=== PATIENT | female | born 1975 | race Caucasian/White ===

== ENCOUNTER 2020-02-19 20:35 | Emergency (ER) | payer OTHER, SELFPAY ==
--- NOTE | ~2020-02-19 | XR_ITS ---
EXAMINATION: XR chest 2V 02/19/2020 21:14 INDICATION: Chest tightness PROCEDURE: PA and lateral views of the chest COMPARISON: No prior studies for comparison. FINDINGS: The lungs are clear. The cardiomediastinal silhouette is within normal limits. There are no pleural effusions. There is no pneumothorax suspected. IMPRESSION: 1: NO ACUTE CARDIOPULMONARY DISEASE. Reviewed, dictated and finalized at location A.
--- NOTE | 2020-02-19 20:37 | ECG_ITS ---
Measurements Intervals [place] Rate: 84 P: 21 AK: 130 QRS: -6 QRSD: 86 T: 12 QT: 411 QTc: 487 Interpretive Statements SINUS RHYTHM BORDERLINE R WAVE PROGRESSION, ANTERIOR LEADS BASELINE ARTIFACT- I, II, AVR, AVL, AVF, V1-V6 BORDERLINE ECG Electronically Signed On 02-20-2020 7:21:38 CDT by Boy Clayton D.O.
[2020-02-19 20:38] VITALS: BP 152/101; PULSE 87; RESP 24; TEMP 36.7; O2SAT 95
[2020-02-19 20:46] VITALS: O2SAT 99
[2020-02-19 20:50] VITALS: PULSE 87
[2020-02-19 20:52] LABS: Basophils Percent Auto 0.4 % (0.2-1.2); Eosinophils Absolute Auto 0.1 K/mm3 (0-0.3); Eosinophils Percent Auto 1.3 % (0-4.4); Hematocrit 39.7 % (37.0-47.0); Hemoglobin 14.1 g/dL (12.0-15.0); Immature Granulocyte Absolute 0.02 K/mm3 (0.00-0.031); Immature Granulocyte Percent A 0.3 % (0-0.5); Lymphocytes Percent Auto 25.6 % (18.3-44.2); Mean Corpuscular HGB Conc 35.5 g/dl (32-36); Mean Corpuscular Hemoglobin 30.2 pg (26-34); Mean Platelet Volume 10.7 fl (7.4-10.4); Monocytes Absolute Auto 0.8 K/mm3 (0.1-0.6); Monocytes Percent Auto 11.4 % (2.6-8.5); Neutrophils Absolute Auto 4.3 K/mm3 (1.3-6.7); Platelet Count Result 209 k/mm3 (150-375); Red Blood Count 4.67 M/mm3 (4.2-5.4); Red Cell Distribution Width 12.8 % (11.5-14.5)
[2020-02-19] MEDS: ASPIRIN 81 MG CHEWABLE TABLET 324 MG PO (21:00)
[2020-02-19] MEDS: ALPRAZolam 0.25 MG TABLET 0.5 MG PO (21:00)
--- NOTE | 2020-02-19 21:02 | ED.GENADULT ---
HPI - General Adult General Chief complaint: Chest Pain Stated complaint: chest tightness Time Seen by Provider: 02/19/20 20:38 History of Present Illness HPI narrative: Patient is a 44-year-old female who presents to the ER with chest pain. Began last night. Pressure in the center of her chest. It began after having a fight with her boss via text message. She then developed some similar chest discomfort after having intense meeting later in the day at work. It is still there but only slightly. No radiation. No sweats/shortness of breath. No other additional aggravating factors. No previous history of coronary disease. Related Data Home Medications Medication Instructions Recorded Confirmed levothyroxine 100 mcg tablet 100 mcg PO DAILY 08/22/19 08/22/19 metoprolol succinate 100 mg 100 mg PO DAILY 08/22/19 08/22/19 capsule sprinkle, ext. release 24 hr omeprazole 20 mg capsule,delayed 20 mg PO DAILY 08/22/19 08/22/19 release oxybutynin chloride 10 mg 10 mg PO DAILY 08/22/19 08/22/19 tablet,extended release 24 hr sertraline 100 mg tablet 100 mg PO DAILY 08/22/19 08/22/19 hydrochlorothiazide 25 mg PO DAILY 02/19/20 semaglutide [Ozempic] 0.25 mg SUBCUT WEEKLY 02/19/20 Allergies Allergy/AdvReac Type Severity Reaction Status Date / Time No Known Allergies Allergy Unverified 02/19/20 20:51 Review of Systems Review of Systems: All systems reviewed & are unremarkable except as noted in HPI and below Constitutional: Constitutional: Denies chills, Denies fever(s) and Denies weakness ENT: Denies nasal congestion and Denies sore throat Cardiovascular: Cardiovascular: Reports chest pain, Denies rapid heart rate and Denies radiating jaw, neck or arm pain Respiratory: Respiratory: Denies cough, Denies dyspnea and Denies wheezing Gastrointestinal: Gastrointestinal: Denies nausea and Denies vomiting Psychiatric: Psychiatric: Reports anxiety (stress) [facility] Past Medical History Medical History (Updated 02/20/20 @ 00:31 by Dillon Holbrook MD) Hypertension Pre-diabetes Radial tunnel syndrome of left upper extremity Surgical History Surgical History History of (~2002) History of endometrial ablation (~2013) History of tubal ligation (~2013) Social History Social History Smoking status: Never smoker Alcohol intake: current Gender identity (if verbalized by the patient): Female Exam Narrative: Exam Narrative: GENERAL: Well-appearing, well-nourished, and in no acute distress. HEAD: Normocephalic, atraumatic. CHEST: Clear to auscultation. No respiratory distress. No reproducible chest wall tenderness. HEART: Regular rate and rhythm. Normal peripheral pulses. ABDOMEN: Soft, nontender, nondistended. EXTREMITIES: Normal range of motion. No edema. SKIN: Warm, dry, no rash. NEURO: Alert and oriented x3. PSYCH: Normal mood and affect. Course Course Emergency Course: Chest pain-free since Xanax. Troponin is negative x2. Discharge home. Vital Signs Vital signs: Vital Signs Temperature 98.0 F 02/19/20 20:38 Pulse Rate 87 02/19/20 20:38 Respiratory Rate 24 H 02/19/20 20:38 Blood Pressure 152/101 H 02/19/20 20:38 Pulse Oximetry 95 02/19/20 20:38 Temperature 98.0 F 02/19/20 20:38 Pulse Rate 75 02/19/20 22:30 Respiratory Rate 22 H 02/19/20 22:30 Blood Pressure 107/73 02/19/20 22:30 Pulse Oximetry 95 02/19/20 22:30 Medical Decision Making Vital Signs Vital Signs: Vital Signs Temperature 98.0 F 02/19/20 20:38 Pulse Rate 87 02/19/20 20:38 Respiratory Rate 24 H 02/19/20 20:38 Blood Pressure 152/101 H 02/19/20 20:38 Pulse Oximetry 95 02/19/20 20:38 Temperature 98.0 F 02/19/20 20:38 Pulse Rate 75 02/19/20 22:30 Respiratory Rate 22 H 02/19/20 22:30 Blood Pressure 107/73 02/19/20 22:30 Pulse Oximetry 95
[2020-02-19 21:03] LABS: Anion Gap 9 mmol/L (8-16); Blood Urea Nitrogen 15 mg/dL (7-17); Calcium 9.1 mg/dL (8.4-10.2); Carbon Dioxide 25 mmol/L (22-30); Chloride 102 mmol/L (98-107); Estimated CRCL calculation 96 ml/min; Estimated Glomerular Filt Rate > 60; Glucose 97 mg/dL (65-105); Potassium 3.6 mmol/L (3.4-5.0); Sodium 136 mmol/L (137-145)
[2020-02-19 21:04] LABS: INR 1.1; Prothrombin Time 13.6 Seconds (11.1-14.7)
[2020-02-19 21:05] LABS: Partial Thromboplastin Time 59.8 SECONDS (22.3-36.8)
[2020-02-19 21:15] LABS: Troponin I < 0.012 ng/mL (0.000-0.034)
[2020-02-19 21:30] VITALS: BP 141/90; PULSE 81; RESP 19; O2SAT 97
[2020-02-19 22:30] VITALS: BP 107/73; PULSE 75; RESP 22; O2SAT 95
[2020-02-19 23:58] LABS: Troponin I < 0.012 ng/mL (0.000-0.034)
[2020-02-20 00:41] VITALS: BP 119/77; PULSE 67; RESP 18; O2SAT 97
== END 2020-02-20 00:40 | disposition home or self-care (01) ==
PROVIDERS: Emergency Provider Emergency Medicine; PCP Nurse Practitioner Adult Health
DX: F41.9 Anxiety disorder, unspecified (principal); R07.9 Chest pain, unspecified; I10 Essential (primary) hypertension
CPT/HCPCS: 36415; 71046; 80048; 84484; 85025; 85610; 85730; 93005; 99284; A9270

== ENCOUNTER → 2020-04-22 10:26 | Outpatient (CLI) | payer OTHER, SELFPAY ==
--- NOTE | ~2020-04-22 | MM_ITS ---
EXAMINATION: MM screening [facility] BI w kerri HISTORY: Screening mammogram TECHNIQUE: Craniocaudal and mediolateral oblique 3-D tomosynthesis images were obtained and synthetic 2-D images were generated. CAD analysis was submitted and interpreted. COMPARISON: 01/01/2019, 10/13/2017, 07/23/2016 BREAST PARENCHYMAL COMPOSITION: There are scattered areas of fibroglandular density. FINDINGS: There is no evidence of suspicious mass, calcification, or architectural distortion to sugg est malignancy in either breast. There has been no suspicious interval change. IMPRESSION: 1. No mammographic evidence of malignancy. 2. Recommend routine screening mammography in one year. BI-RADS Category 1: Negative Reviewed, dictated and finalized at location A.
== END ==
PROVIDERS: Visit Provider Nurse Practitioner Adult Health
DX: Z12.31 Encounter for screening mammogram for malignant neoplasm of breast (principal)
CPT/HCPCS: 77063; 77067

== ENCOUNTER → 2021-11-24 16:16 | Outpatient (CLI) | payer OTHER, SELFPAY ==
--- NOTE | ~2021-11-24 | MM_ITS ---
EXAMINATION: MM screening ju BI w kerri HISTORY: Screening mammogram TECHNIQUE: Craniocaudal and mediolateral oblique 3-D tomosynthesis images were obtained and synthetic 2-D images were generated. CAD analysis was submitted and interpreted. COMPARISON: 04/22/2020, 01/01/2019, 10/21/2017 bilateral screening mammogram examinations BREAST PARENCHYMAL COMPOSITION: There are scattered areas of fibroglandular density. FINDINGS: There is no evidence of suspicious mass, calcification, or architectural distortion to sugg est malignancy in either breast. There has been no suspicious interval change. IMPRESSION: 1. No mammographic evidence of malignancy. 2. Recommend routine screening mammography in one year. BI-RADS Category 1: Negative Reviewed, dictated and finalized at location A.
== END ==
PROVIDERS: PCP Nurse Practitioner Adult Health; Visit Provider Obstetrics & Gynecology
DX: Z12.31 Encounter for screening mammogram for malignant neoplasm of breast (principal)
CPT/HCPCS: 77063; 77067

== ENCOUNTER 2021-12-12 14:11 | Emergency (ER) | payer OTHER, SELFPAY ==
[2021-12-12 14:15] VITALS: BP 119/83; PULSE 74; RESP 16; TEMP 36.3; O2SAT 100
--- NOTE | 2021-12-12 14:16 | ED.SKABFB ---
HPI - Skin/Abscess/Foreign Bdy General Chief complaint: Skin/Abscess/Foreign Body Stated complaint: rash Time Seen by Provider: 12/12/21 14:16 Source: patient Mode of arrival: ambulatory Limitations: no limitations History of Present Illness HPI narrative: Ms. Cotto is a 46-year-old female patient presenting to the clinic today with complaints of a rash to her face, arms, and chest. She reports she was out doing yard work and was around poison [place]. States that her has got poison [place] rash as well. She is concerned because some of the rashes by her left eye. Related Data Home Medications Medication Instructions Recorded Confirmed levothyroxine 100 mcg tablet 100 mcg PO DAILY 08/22/19 09/29/21 metoprolol succinate 100 mg 100 mg PO DAILY 08/22/19 09/29/21 capsule sprinkle, ext. release 24 hr omeprazole 20 mg capsule,delayed 20 mg PO DAILY 08/22/19 09/29/21 release sertraline 100 mg tablet 100 mg PO DAILY 08/22/19 09/29/21 hydrochlorothiazide 25 mg tablet 25 mg PO DAILY 02/19/20 09/29/21 semaglutide 0.25 mg or 0.5 mg (2 0.25 mg subcut WEEKLY 02/19/20 09/29/21 mg/1.5 mL) subcutaneous pen injector (Ozempic) Allergies Allergy/AdvReac Type Severity Reaction Status Date / Time No Known Allergies Allergy Unverified 09/29/21 08:36 Review of Systems Review of Systems: Pertinent positives per HPI. Patient denies any fever, chills,headache, visual changes, dizziness, cough, runny nose, sore throat, shortness of breath, chest pain, palpitations, nausea, vomiting, diarrhea, constipation, abdominal pain, or any urinary issues. [facility] Past Medical History Medical History Hypertension Pre-diabetes Radial tunnel syndrome of left upper extremity Screening mammogram, encounter for Thyroid disease Surgical History Surgical History History of (11/24/02) History of dilation and curettage 01/03/13 hscope d&c/tubal ligation History of endometrial ablation 05/02/13 hscope d&c/endo ablation--secretory endometrium History of laparoscopy (06/23/11) Bilateral tubal ligation using Filshie clips, laparoscopic lysis of adhesions, laparoscopic resection of a left adnexal mass History of tubal ligation (06/23/11) 06/23/11 Bilateral tubal ligation using Filshie clips, laparoscopic lysis of adhesions, laparoscopic resection of a left adnexal mass 01/03/13 hscope d&c w/tubal ligation Family History Family History Father Hypertension Diabetes mellitus Mother Hypertension Diabetes mellitus Grandparent Family history of lung cancer Family history of coronary artery disease Diabetes mellitus maternal grandmother Breast cancer, Onset Age: 79 maternal grandmother Social History Social History Smoking status: Never smoker Alcohol intake: current Alcohol use details: ocassional 1 x month Substance use: never Substance use type: does not use Additional living arrangements comments: 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 There is no relevant family history pertinent to the patient complaint. Exam Narrative: General: Well-developed, obese, in no apparent distress Head: Normocephalic, atraumatic. Cardio: Regular rate and rhythm, s1 and s2 normal, no murmur appreciated. Resp: Clear to auscultation bilaterally, no rhonchi, rales, wheezing or rubs. Integumentary: [place], warm, and dry, intact without lesion, red, raised, blistery, itchy rash to the an
== END 2021-12-12 14:53 | disposition home or self-care (01) ==
PROVIDERS: Emergency Provider Nurse Practitioner Family; PCP Nurse Practitioner Adult Health
DX: L23.7 Allergic contact dermatitis due to plants, except food (principal); I10 Essential (primary) hypertension; R73.03 Prediabetes; E07.9 Disorder of thyroid, unspecified
CPT/HCPCS: 96372; 99213; G0463; J1100

== ENCOUNTER 2022-12-30 17:04 | Outpatient (CLI) | payer OTHER, SELFPAY ==
[2022-12-30 17:46] LABS: Anion Gap 7 mmol/L (8-16); Blood Urea Nitrogen 11 mg/dL (7-17); Calcium 8.8 mg/dL (8.4-10.2); Carbon Dioxide 27 mmol/L (22-30); Chloride 102 mmol/L (98-107); Estimated Glomerular Filt Rate > 60; Glucose 126 mg/dL (65-110); Potassium 3.7 mmol/L (3.4-5.0); Sodium 136 mmol/L (137-145)
== END 2022-12-30 17:05 | disposition home or self-care (01) ==
LOC: ANHLAB 17:05
PROVIDERS: PCP Family Medicine; Visit Provider Anesthesiology
DX: E11.9 Type 2 diabetes mellitus without complications (principal); Z01.818 Encounter for other preprocedural examination
CPT/HCPCS: 36415; 80048

== ENCOUNTER 2023-01-06 02:47 | Day surgery (SDC) | payer OTHER, SELFPAY ==
[2022-12-28 10:11] VITALS: BMI 38.2
--- NOTE | 2022-12-28 10:17 | PC.NURSE ---
Report to the Outpatient Waiting Room, entrance under the green pavilion located off [facility], at time _0700__ on date _01/06/23_. Planned Procedure Time: _0900. Time changes happen often and if your time is changed the preop area will call you the afternoon before. - You and your visitor will be asked to self-screen and do not enter if you have any COVID symptoms. - A mask is optional within the hospital at this time. Patients may have clear liquids (water, carbonated beverages, clear teas, apple juice) until 3 hours prior to surgery with a maximum of 20 ounces. - No food from midnight until time of surgery - Infants may have breast milk until 4 hours before surgery, infant formula 6 hours prior to surgery. - Children will be allowed to drink immediately following surgery. If applicable, please bring a bottle or sippy cup to assist with drinking. Juice, water, soda, and popsicles are readily available. For infants on formula, please bring formula the day of surgery. Pacifiers are allowed. Take the following medications with a SIP of water the morning of surgery: _LEVOTHYROXINE, METOPROLOL, SERTRALINE_ DO NOT STOP ANY OF YOUR OTHER PRESCRIPTION MEDICATIONS PRIOR TO SURGERY ?EXCEPT THE FOLLOWING Medications to discontinue per physician NONE Date to take last dose Please no make-up, nail wolof, hairspray, perfume, deodorant, or body powder the day of surgery. No jewelry (including any body piercings) or valuables the day of surgery, leave them at home. Please take a shower or bath the night before, or the morning of, surgery with an antibacterial soap. Wear comfortable, loose fitting clothing. Children are encouraged to wear pajamas. - Jewelry must be removed prior to entering the operating room. Rings and piercings that are not removed may be cut off. - The hospital will not accept responsibility for valuables. - Please leave all valuables, including medications, at home the day of surgery. If you are going home after surgery, a licensed wheelchair van driver must drive you home. - NO public transportation without another adult if you receive anesthesia. - We recommend that an adult stay with you for 24 hours following discharge. - We also recommend that you do not drive, make important decision, drink alcoholic beverages, or take any drugs that were not prescribed by your health care provider for at least 24 hours after your discharge time. For Pediatric surgeries, we recommend two adults accompany the child home. Follow any additional instructions given to you from your surgeon. If you or anyone in your household have experienced Covid symptoms in the past week, please notify your surgeon or the nurse liaison at the phone number below for possible testing. Telephone instructions given to _PATIENT and asked if any additional questions and then verbalized understanding. Patient advised to call surgeon office or pre surgery nurse liaison [phone] if any additional questions.
--- NOTE | 2023-01-05 13:13 | PM.IMHP ---
H&P: HPI History of Present Illness Date/Time: 01/05/23 13:13 Chief Complaint: stress incontinence Narrative: she desires operative intervention for stress urinary incontinence. It is confirmed on urodynamics. Review of Systems Review of Systems: All systems reviewed & are unremarkable except as noted in HPI and below PMFSH Past Medical History Medical History Elevated glucose Essential (primary) hypertension Fatty (change of) liver, not elsewhere classified GERD (gastroesophageal reflux disease) Hypertension Hypothyroidism, unspecified Metabolic syndrome Radial tunnel syndrome of left upper extremity Screening mammogram, encounter for Thyroid disease Type 2 diabetes mellitus without complications Surgical History Surgical History History of (11/24/02) History of dilation and curettage 01/03/13 hscope d&c/tubal ligation History of endometrial ablation 05/02/13 hscope d&c/endo ablation--secretory endometrium History of laparoscopy (06/23/11) Bilateral tubal ligation using Filshie clips, laparoscopic lysis of adhesions, laparoscopic resection of a left adnexal mass History of tubal ligation (06/23/11) 06/23/11 Bilateral tubal ligation using Filshie clips, laparoscopic lysis of adhesions, laparoscopic resection of a left adnexal mass 01/03/13 hscope d&c w/tubal ligation Family History Family History Father Hypertension Diabetes mellitus Mother Hypertension Diabetes mellitus Grandparent Family history of lung cancer Family history of coronary artery disease Diabetes mellitus maternal grandmother Breast cancer, Onset Age: 79 maternal grandmother Hypertension Sibling Hypertension Other Depression Social History Social History Smoking status: Never smoker Second hand tobacco smoke exposure: No Alcohol intake: current Alcohol use details: 2 PER MONTH Substance use: former Substance use type: marijuana Other substance usage details: IN TEEN YEARS Lack of Transportation: No Lack of Food: Never True Current Housing: I Have Housing Concerned About Future Housing: No Difficulty Paying Gas/Electric Bills: No Difficulty Paying for Meds: No Currently Unemployed: No Education: High School Diploma/GED Difficulty w/ Childcare or Family Care: No Living arrangements: with family Additional living arrangements comments: Occupation/Education: occupation 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 Gender identity (if verbalized by the patient): Female Sexual Orientation (if Verbalized by the Patient): Straight or Heterosexual Spiritual care concerns: No Agree to blood products: Yes Meds Home Medications and Allergies Home Medications Medication Instructions Recorded Confirmed Type baclofen 5 mg tablet 5 mg PO BID #60 tabs 09/12/22 12/28/22 Rx sertraline 100 mg tablet 100 mg PO DAILY #90 tabs 09/12/22 12/28/22 Rx levothyroxine 100 mcg tablet 100 mcg PO DAILY #90 tabs 09/20/22 12/28/22 Rx metoprolol succinate 100 mg 100 mg PO DAILY #90 tabs 09/21/22 12/28/22 Rx tablet,extended release 24 hr hydrochlorothiazide 25 mg tablet 25 mg PO DAILY #90 tabs 11/08/22 12/28/22 Rx omeprazole 40 mg capsule,delayed 40 mg PO DAILY #90 caps 12/01/22 12/28/22 Rx release semaglutide 1 mg/dose (4 mg/3 mL) 1 mg (0.75 mL) subcut WEEKLY 4 12/20/22 12/28/22 Rx subcutaneous pen injector (Ozempic) weeks #3 mL Allergies Allergy/AdvReac Type Severity Reaction Status Date / Time No Known Allergies Allergy Verified 12/28/22 10:09 Exam Narrative: No acute distress normal breathing alert oriented x3 urethral hypermobility Assessment and Plan Assessment and plan (1) PATTI (stress urin
--- NOTE | 2023-01-06 07:11 | WPDHPUPDATE1 ---
History and Physical Update Update Date/Time: 01/06/23 07:11 History and Physical has been reviewed, including an updated exam of the patient. There are NO changes in the patient's condition. Risks, benefits, and alternatives have been discussed and questions answered. Patient agrees to proceed with procedure.
--- NOTE | 2023-01-06 07:26 | WPDANESEPPF ---
Anes - Initial Pre Proc Eval Procedure: Operation Date: 01/06/23 09:00 Proposed Procedures p Urethral Sling - Shivam Potter MD Date/Time: 01/06/23 07:26 Surgeon: Shivam Potter MD Pre Op Diagnosis: stress incont Patient Data Age: 47 Gender: F Height: 1.57 m Weight: 95 kg Allergies Allergy/AdvReac Type Severity Reaction Status Date / Time No Known Allergies Allergy Verified 01/06/23 07:02 Home Medications Medication Instructions Recorded Confirmed Type baclofen 5 mg tablet 5 mg PO BID #60 tabs 09/12/22 12/28/22 Rx sertraline 100 mg tablet 100 mg PO DAILY #90 tabs 09/12/22 12/28/22 Rx levothyroxine 100 mcg tablet 100 mcg PO DAILY #90 tabs 09/20/22 12/28/22 Rx metoprolol succinate 100 mg 100 mg PO DAILY #90 tabs 09/21/22 12/28/22 Rx tablet,extended release 24 hr hydrochlorothiazide 25 mg tablet 25 mg PO DAILY #90 tabs 11/08/22 12/28/22 Rx omeprazole 40 mg capsule,delayed 40 mg PO DAILY #90 caps 12/01/22 12/28/22 Rx release semaglutide 1 mg/dose (4 mg/3 mL) 1 mg (0.75 mL) subcut WEEKLY 4 12/20/22 12/28/22 Rx subcutaneous pen injector (Ozempic) weeks #3 mL Patient hx anesthesia problems: none Family hx anesthesia problems: none Results Review: All pre-operative results and documents have been reviewed as part of the pre-operative evaluation. [facility] Past Medical History Medical History Elevated glucose Essential (primary) hypertension Fatty (change of) liver, not elsewhere classified GERD (gastroesophageal reflux disease) Hypertension Hypothyroidism, unspecified Metabolic syndrome Radial tunnel syndrome of left upper extremity Screening mammogram, encounter for Thyroid disease Type 2 diabetes mellitus without complications Surgical History Surgical History History of (11/24/02) History of dilation and curettage 01/03/13 hscope d&c/tubal ligation History of endometrial ablation 05/02/13 hscope d&c/endo ablation--secretory endometrium History of laparoscopy (06/23/11) Bilateral tubal ligation using Filshie clips, laparoscopic lysis of adhesions, laparoscopic resection of a left adnexal mass History of tubal ligation (06/23/11) 06/23/11 Bilateral tubal ligation using Filshie clips, laparoscopic lysis of adhesions, laparoscopic resection of a left adnexal mass 01/03/13 hscope d&c w/tubal ligation Family History Family History Father Hypertension Diabetes mellitus Mother Hypertension Diabetes mellitus Grandparent Family history of lung cancer Family history of coronary artery disease Diabetes mellitus maternal grandmother Breast cancer, Onset Age: 79 maternal grandmother Hypertension Sibling Hypertension Other Depression Social History Social History Smoking status: Never smoker Second hand tobacco smoke exposure: No Alcohol intake: current Alcohol use details: 2 PER MONTH Substance use: former Substance use type: marijuana Other substance usage details: IN TEEN YEARS Lack of Transportation: No Lack of Food: Never True Current Housing: I Have Housing Concerned About Future Housing: No Difficulty Paying Gas/Electric Bills: No Difficulty Paying for Meds: No Currently Unemployed: No Education: High School Diploma/GED Difficulty w/ Childcare or Family Care: No Living arrangements: with family Additional living arrangements comments: Occupation/Education: occupation 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
[2023-01-06 07:47] VITALS: BP 125/82; PULSE 73; RESP 16; TEMP 36.6; O2SAT 97
[2023-01-06] MEDS: LACTATED RINGERS 1,000 ML 30 ML IV CONT (07:54)
[2023-01-06 08:03] LABS: Glucose Point of Care 135 mg/dl (65-105)
[2023-01-06] MEDS: ceFAZolin 2 GM/D5W 50 ML 2 GM/50 ML BAG IVPB (09:20)
[2023-01-06] MEDS: BUPIVACAINE/EPINEPHRINE 0.5% 10 ML VIAL 20 ML INFILTRATE (09:36)
--- NOTE | 2023-01-06 09:50 | W.PM.PROC2 ---
Procedure Note - Detailed Date of Procedure 01/06/23 Pre-op Diagnosis stress incont Post-op Diagnosis Same Procedure Performed mid urethral sling cystoscopy Surgeon Shivam Potter MD Anesthesia MAC and Local Indications This is a female with confirmed stress urinary incontinence. She desires surgical correction. She understands the risks of bleeding, infection, injury to the urinary tract, vaginal mesh extrusion, urinary tract mesh erosion, obstructive voiding requiring a secondary procedure, hip and leg pain, dyspareunia, inability to improve overactive bladder symptoms. She agrees to proceed. Description of Procedure She was correctly identified. Informed consent obtained. She was brought the operating room. She was given appropriate anesthesia. She was given appropriate perioperative antibiotics. A time-out performed. I marked out the site of the inner thigh incisions. I anesthetized the skin and made those incisions. I anesthetized the anterior vaginal wall over the mid urethra. I made a 1 cm incision. I dissected out laterally taking great care not to injure the refilled vaginal wall. The procedure was made somewhat more difficult by her body habitus and her narrow caliber vagina. I passed the helical trocars. First on the left. Then on the right. I did this from the thigh incision towards the vaginal incision. The sling was connected to the trocars and brought out through the thigh incision. I tensioned the sling appropriately. I cut and the plastic sheaths. I then closed the incision with 2 0 Vicryl. On cystoscopy there is no tumors or surgical artifact. There was no surgical artifact in the urethra. I cut the excess sling material. Close incisions with glue. She was awakened and transferred to the PACU in stable condition. Implants Urethral sling Estimated Blood Loss 40 Drains No Packing No Pathology None sent Complications No immediate complications Condition Stable Disposition PACU
[2023-01-06 09:51] VITALS: BP 119/81; PULSE 77; RESP 18; O2SAT 97
[2023-01-06 10:11] LABS: Glucose Point of Care 119 mg/dl (65-105)
[2023-01-06 10:20] VITALS: BP 121/75; PULSE 65; RESP 18
== END 2023-01-06 10:40 | disposition home or self-care (01) ==
PROVIDERS: PCP Family Medicine; Visit Provider Urology
PROC: (CPT 57288; principal; 2023-01-06 09:00)
DX: N39.3 Stress incontinence (female) (male) (principal); I10 Essential (primary) hypertension; K21.9 Gastro-esophageal reflux disease without esophagitis; E03.9 Hypothyroidism, unspecified; E11.9 Type 2 diabetes mellitus without complications
CPT/HCPCS: 57288; 36415; 80048; 82948; C1771; J0690; J2250; J2704; J3010; J7030; J7120

== ENCOUNTER → 2023-03-03 13:43 | Outpatient (CLI) | payer BC, SELFPAY ==
--- NOTE | ~2023-03-03 | MM_ITS ---
EXAMINATION: MM screening ju BI w kerri HISTORY: Screening mammogram TECHNIQUE: Craniocaudal and mediolateral oblique 3-D tomosynthesis images were obtained and synthetic 2-D images were generated. CAD analysis was submitted and interpreted. COMPARISON: 11/24/2021, 04/20/2020 bilateral screening mammogram examinations BREAST PARENCHYMAL COMPOSITION: There are scattered areas of fibroglandular density. FINDINGS: There is no evidence of suspicious mass, calcification, or architectural distortion to sugg est malignancy in either breast. There has been no suspicious interval change. IMPRESSION: 1. No mammographic evidence of malignancy. 2. Recommend routine screening mammography in one year. BI-RADS Category 1: Negative..... Reviewed, dictated and finalized at location A.
== END ==
PROVIDERS: PCP Family Medicine; Visit Provider Obstetrics & Gynecology
DX: Z12.31 Encounter for screening mammogram for malignant neoplasm of breast (principal)
CPT/HCPCS: 77063; 77067

== ENCOUNTER 2023-07-24 01:51 | Day surgery (SDC) | payer BC, SELFPAY ==
[2023-06-27 08:27] VITALS: BMI 39.4
--- NOTE | 2023-07-21 09:52 | SUR.PREOP ---
Patient called regarding upcoming procedure. Message left regarding pt arrival date and time.
--- NOTE | 2023-07-22 15:14 | PM.HPGS ---
History of Present Illness History of Present Illness Consent: Risks, benefits, and alternatives have been discussed and questions answered. Patient agrees to proceed with procedure. Chief complaint: neoplasm screening Narrative: Xiomara Cotto is a 48 year old female who is referred for colon cancer screening.Close and a paternal grandfather all had colon cancer. Review of Systems Review of Systems: All systems reviewed & are unremarkable except as noted in HPI and below PMFSH Past Medical History Medical History Elevated glucose Essential (primary) hypertension Fatty (change of) liver, not elsewhere classified GERD (gastroesophageal reflux disease) Hypertension Hypothyroidism, unspecified Metabolic syndrome Radial tunnel syndrome of left upper extremity Screening mammogram, encounter for Thyroid disease Type 2 diabetes mellitus without complications Surgical History Surgical History History of (11/24/02) History of dilation and curettage 01/03/13 hscope d&c/tubal ligation History of endometrial ablation 05/02/13 hscope d&c/endo ablation--secretory endometrium History of laparoscopy (06/23/11) Bilateral tubal ligation using Filshie clips, laparoscopic lysis of adhesions, laparoscopic resection of a left adnexal mass History of tubal ligation (06/23/11) 06/23/11 Bilateral tubal ligation using Filshie clips, laparoscopic lysis of adhesions, laparoscopic resection of a left adnexal mass 01/03/13 hscope d&c w/tubal ligation Family History Family History Father Hypertension Diabetes mellitus Mother Hypertension Diabetes mellitus Grandparent Family history of lung cancer Family history of coronary artery disease Diabetes mellitus maternal grandmother Breast cancer, Onset Age: 79 maternal grandmother Hypertension Sibling Hypertension Other Depression Social History Social History Smoking status: Never smoker Second hand tobacco smoke exposure: No Alcohol intake: current Alcohol use details: 1 drink monthly Substance use: former Substance use type: does not use Other substance usage details: IN TEEN YEARS Lack of Transportation: No Lack of Food: Never True Current Housing: I Have Housing Concerned About Future Housing: No Difficulty Paying Gas/Electric Bills: No Difficulty Paying for Meds: No Currently Unemployed: No Education: High School Diploma/GED Difficulty w/ Childcare or Family Care: No Living arrangements: with family Additional living arrangements comments: Occupation/Education: occupation 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 Gender identity (if verbalized by the patient): Female Sexual Orientation (if Verbalized by the Patient): Straight or Heterosexual Spiritual care concerns: No Agree to blood products: Yes Meds Home Medications and Allergies Home Medications Medication Instructions Recorded Confirmed Type levothyroxine 100 mcg tablet 100 mcg PO DAILY #90 tabs 09/20/22 07/24/23 Rx hydrochlorothiazide 25 mg tablet 25 mg PO DAILY #90 tabs 11/08/22 06/27/23 Rx venlafaxine 75 mg capsule,extended 75 mg PO QPM #30 caps 04/26/23 06/27/23 Rx release 24 hr baclofen 5 mg tablet 5 mg PO BID #60 tabs 04/28/23 06/27/23 Rx metoprolol succinate 100 mg 100 mg PO DAILY #90 tabs 04/28/23 07/24/23 Rx tablet,extended release 24 hr Ozempic 1 mg/dose (4 mg/3 mL) 1 mg (0.75 mL) subcut WEEKLY #3 mL 05/23/23 07/24/23 Rx subcutaneous pen injector (semaglutide) omeprazole 40 mg capsule,delayed 40 mg PO DAILY #90 caps 07/09/23 07/24/23 Rx release Allergies Allergy/AdvReac Type Severity Reaction Status Date / Time No Known Allergies Allergy Verified 07/24/23 08:49
[2023-07-24 08:51] VITALS: BP 151/78; PULSE 78; RESP 18; TEMP 36.3; O2SAT 100
[2023-07-24] MEDS: LACTATED RINGERS 1,000 ML 150 ML IV CONT (08:59)
[2023-07-24 09:04] LABS: Glucose Point of Care 132 mg/dl (65-105)
--- NOTE | 2023-07-24 09:13 | WPDANESEPPF ---
Anes - Initial Pre Proc Eval Procedure: Operation Date: 07/24/23 10:00 Proposed Procedures p Screening Colonoscopy - Severiano Alba MD Date/Time: 07/24/23 09:13 Surgeon: Severiano Alba MD Pre Op Diagnosis: neoplasm screening Patient Data Age: 48 Gender: F Height: 1.57 m Weight: 96.2 kg Last Vital Signs Temp 97.3 F L 07/24/23 08:51 Pulse 78 07/24/23 08:51 Resp 18 07/24/23 08:51 BP 151/78 H 07/24/23 08:51 Pulse Ox 100 07/24/23 08:51 O2 Del Method Room Air 07/24/23 08:51 Allergies Allergy/AdvReac Type Severity Reaction Status Date / Time No Known Allergies Allergy Verified 07/24/23 08:49 Home Medications Medication Instructions Recorded Confirmed Type levothyroxine 100 mcg tablet 100 mcg PO DAILY #90 tabs 09/20/22 07/24/23 Rx hydrochlorothiazide 25 mg tablet 25 mg PO DAILY #90 tabs 11/08/22 06/27/23 Rx venlafaxine 75 mg capsule,extended 75 mg PO QPM #30 caps 04/26/23 06/27/23 Rx release 24 hr baclofen 5 mg tablet 5 mg PO BID #60 tabs 04/28/23 06/27/23 Rx metoprolol succinate 100 mg 100 mg PO DAILY #90 tabs 04/28/23 07/24/23 Rx tablet,extended release 24 hr Ozempic 1 mg/dose (4 mg/3 mL) 1 mg (0.75 mL) subcut WEEKLY #3 mL 05/23/23 07/24/23 Rx subcutaneous pen injector (semaglutide) omeprazole 40 mg capsule,delayed 40 mg PO DAILY #90 caps 07/09/23 07/24/23 Rx release Laboratory Tests 07/24/23 08:58 POC Capillary Glucose 132 H mg/dl (65-105) Patient hx anesthesia problems: none Family hx anesthesia problems: none Results Review: All pre-operative results and documents have been reviewed as part of the pre-operative evaluation. [facility] Past Medical History Medical History Elevated glucose Essential (primary) hypertension Fatty (change of) liver, not elsewhere classified GERD (gastroesophageal reflux disease) Hypertension Hypothyroidism, unspecified Metabolic syndrome Radial tunnel syndrome of left upper extremity Screening mammogram, encounter for Thyroid disease Type 2 diabetes mellitus without complications Surgical History Surgical History History of (11/24/02) History of dilation and curettage 01/03/13 hscope d&c/tubal ligation History of endometrial ablation 05/02/13 hscope d&c/endo ablation--secretory endometrium History of laparoscopy (06/23/11) Bilateral tubal ligation using Filshie clips, laparoscopic lysis of adhesions, laparoscopic resection of a left adnexal mass History of tubal ligation (06/23/11) 06/23/11 Bilateral tubal ligation using Filshie clips, laparoscopic lysis of adhesions, laparoscopic resection of a left adnexal mass 01/03/13 hscope d&c w/tubal ligation Family History Family History Father Hypertension Diabetes mellitus Mother Hypertension Diabetes mellitus Grandparent Family history of lung cancer Family history of coronary artery disease Diabetes mellitus maternal grandmother Breast cancer, Onset Age: 79 maternal grandmother Hypertension Sibling Hypertension Other Depression Social History Social History Smoking status: Never smoker Second hand tobacco smoke exposure: No Alcohol intake: current Alcohol use details: 1 drink monthly Substance use: former Substance use type: does not use Other substance usage details: IN TEEN YEARS Lack of Transportation: No Lack of Food: Never True Current Housing: I Have Housing Concerned About Future Housing: No Difficulty Paying Gas/Electric Bills: No Difficulty Paying for Meds: No Currently Unemployed: No Education: High School Diploma/GED Difficulty w/ Childcare or Family Care: No Living arrangements: with family Additional living arrangements comments: divor
[2023-07-24 10:04] VITALS: BP 114/73; PULSE 80; RESP 27; O2SAT 100
[2023-07-24 10:14] VITALS: BP 129/84; PULSE 76; RESP 26; O2SAT 100
[2023-07-24 10:24] VITALS: BP 128/87; PULSE 73; RESP 20; O2SAT 100
== END 2023-07-24 10:31 | disposition home or self-care (01) ==
PROVIDERS: PCP Family Medicine; Visit Provider Internal Medicine Gastroenterology
PROC: 0DJD8ZZ Inspection of Lower Intestinal Tract, Via Natural or Artificial Opening Endoscopic (ICD-10-PCS; CPT 45378; principal; 2023-07-24 10:00)
DX: Z12.11 Encounter for screening for malignant neoplasm of colon (principal); K64.8 Other hemorrhoids; I10 Essential (primary) hypertension; K21.9 Gastro-esophageal reflux disease without esophagitis; E03.9 Hypothyroidism, unspecified; E88.810 Metabolic syndrome; E11.9 Type 2 diabetes mellitus without complications; E66.9 Obesity, unspecified; Z68.38 Body mass index [BMI] 38.0-38.9, adult; Z79.85 Long-term (current) use of injectable non-insulin antidiabetic drugs; Z98.890 Other specified postprocedural states; Z80.1 Family history of malignant neoplasm of trachea, bronchus and lung; Z82.49 Family history of ischemic heart disease and other diseases of the circulatory system; Z80.3 Family history of malignant neoplasm of breast
CPT/HCPCS: 45378; 82948; J7120

== ENCOUNTER 2023-09-29 10:58 | Emergency (ER) | payer BC, SELFPAY ==
--- NOTE | 2023-09-29 11:04 | ED.GENADULT ---
HPI - General Adult General Chief complaint: Skin/Abscess/Foreign Body Stated complaint: Hives Time Seen by Provider: 09/29/23 11:04 Source: patient, RN notes reviewed and old records reviewed Mode of arrival: ambulatory Limitations: no limitations History of Present Illness HPI narrative: 48-year-old female to [facility] with complaint of bilateral eye irritation, redness for 3 days. Patient endorses child in home recently diagnosed with conjunctivitis. Pt also complaining of rash throughout face and bilateral wrists for 4 days. Patient states she was doing yard work last weekend and was likely exposed to poison awilda. Patient endorses history of similar reaction poison awilda. Patient has attempted to treat at home with p.o. Benadryl and Benadryl cream without relief. Related Data Allergies Allergy/AdvReac Type Severity Reaction Status Date / Time No Known Allergies Allergy Verified 09/29/23 11:10 Review of Systems Review of Systems: All systems reviewed & are unremarkable except as noted in HPI and below Constitutional: Constitutional: Reports as per HPI and Denies fatigue Eyes: Eyes: Reports as per HPI, Reports change in vision ( Right eye with onset of rash; resolved) and Reports irritation ( Bilateral) ENT: Reports as per HPI and Reports sore throat Cardiovascular: Cardiovascular: Reports no additional cardiovascular complaints, Denies chest pain and Denies dyspnea Respiratory: Respiratory: Reports no additional respiratory complaints, Denies cough, Denies pain on inspiration and Denies dyspnea Musculoskeletal: Musculoskeletal: Reports no additional musculoskeletal complaints Integumentary/Breasts: Skin/Breast: Reports rash (face- diffuse) Neurologic: Reports system reviewed and no additional complaints, except as documented Psychiatric: Psychiatric: Reports no additional psychiatric complaints PMFSH Past Medical History Medical History Elevated glucose Essential (primary) hypertension Fatty (change of) liver, not elsewhere classified GERD (gastroesophageal reflux disease) Hypertension Hypothyroidism, unspecified Metabolic syndrome Radial tunnel syndrome of left upper extremity Screening mammogram, encounter for Thyroid disease Type 2 diabetes mellitus without complications Surgical History Surgical History History of (11/24/02) History of dilation and curettage 01/03/13 hscope d&c/tubal ligation History of endometrial ablation 05/02/13 hscope d&c/endo ablation--secretory endometrium History of laparoscopy (06/23/11) Bilateral tubal ligation using Filshie clips, laparoscopic lysis of adhesions, laparoscopic resection of a left adnexal mass History of tubal ligation (06/23/11) 06/23/11 Bilateral tubal ligation using Filshie clips, laparoscopic lysis of adhesions, laparoscopic resection of a left adnexal mass 01/03/13 hscope d&c w/tubal ligation Family History Family History Father Hypertension Diabetes mellitus Mother Hypertension Diabetes mellitus Grandparent Family history of lung cancer Family history of coronary artery disease Diabetes mellitus maternal grandmother Breast cancer, Onset Age: 79 maternal grandmother Hypertension Sibling Hypertension Other Depression Social History Social History Smoking status: Never smoker Second hand tobacco smoke exposure: No Alcohol intake: current Alcohol use details: 1 drink monthly Substance use: former Substance use type: does not use Other substance usage details: IN TEEN YEARS Lack of Transportation: No Lack of Food: Never True Current Housing: I Have Housing Concerned About Future Housing: No Difficulty Paying Gas/Electric Bills: No Difficulty Paying for Meds: No Curr
[2023-09-29 11:13] VITALS: BP 119/84; PULSE 73; RESP 16; TEMP 36.5; O2SAT 100
[2023-09-29] MEDS: predniSONE 20 MG TABLET 40 MG PO (11:36)
== END 2023-09-29 11:46 | disposition home or self-care (01) ==
PROVIDERS: Emergency Provider Nurse Practitioner Family; PCP Family Medicine
DX: L25.9 Unspecified contact dermatitis, unspecified cause (principal); H10.33 Unspecified acute conjunctivitis, bilateral; I10 Essential (primary) hypertension; K76.0 Fatty (change of) liver, not elsewhere classified; K21.9 Gastro-esophageal reflux disease without esophagitis; E03.9 Hypothyroidism, unspecified; E11.9 Type 2 diabetes mellitus without complications; E88.810 Metabolic syndrome
CPT/HCPCS: 87081; 87880; 99213; G0463; J7512

== ENCOUNTER 2023-11-28 14:35 | Outpatient (CLI) | payer BC, SELFPAY ==
--- NOTE | ~2023-11-28 | US_ITS ---
US soft tissue UE LT 11/28/2023 15:06 Indication: Localized swelling of the left forearm Procedure: High-resolution Limited ultrasound of the left forearm soft tissues posteriorly Comparison: No prior studies for comparison. Findings: Normal heterogeneous soft tissues without focal solid or cystic mass. Impression: 1: Normal soft tissue ultrasound of the left forearm. No discrete mass. Reviewed, dictated and finalized at location B. Impression: 1: Normal soft tissue ultrasound of the left forearm. No discrete mass.
== END 2023-11-28 14:36 | disposition home or self-care (01) ==
PROVIDERS: PCP Nurse Practitioner Adult Health; Visit Provider Nurse Practitioner Adult Health
DX: R22.32 Localized swelling, mass and lump, left upper limb (principal)
CPT/HCPCS: 76882

== ENCOUNTER 2023-12-06 13:32 | Outpatient (CLI) | payer BC, SELFPAY ==
--- NOTE | 2023-12-06 14:15 | NEURO_ITS ---
Impression: # Complains of left upper extremity discomfort dorsally. # Left ulnar neuropathy across the elbow. # No Carpal Tunnel Syndrome. # Normal needle/EMG exam. # Question Radial Tunnel Syndrome. Nerve Conduction Studies Anti Sensory Summary Table Stim Site NR Peak (ms) P-T Amp (?V) Site1 Site2 Delta-P (ms) Dist (cm) Derrick (m/s) Left Median Anti Sensory (2-3nd Digit) Wrist 2.7 79.0 Wrist 2-3nd Digit 2.7 14.0 52 Wrist 2.8 55.7 Wrist 2-3nd Digit 2.7 14.0 52 Left Radial Anti Sensory (Base 1st Digit) Wrist 1.7 24.3 Wrist Base 1st Digit 1.7 0.0 Left Ulnar Anti Sensory (5th Digit) Wrist 2.1 91.9 Wrist 5th Digit 2.1 14.0 67 Motor Summary Table Stim Site NR Onset (ms) O-P Amp (mV) Site1 Site2 Delta-0 (ms) Dist (cm) Derrick (m/s) Left Median Motor (Abd Poll Brev) Wrist 3.1 1.8 Elbow Wrist 4.3 26.0 60 Elbow 7.4 1.1 Left Ulnar Motor (Abd Dig Minimi) Wrist 2.2 6.7 A Elbow Wrist 5.4 27.0 50 A Elbow 7.6 6.3 B Elbow Wrist 2.8 17.0 61 B Elbow 5.0 6.2 F Wave Studies NR F-Lat (ms) L-R F-Lat (ms) Left Median (Mrkrs) (Abd Poll Brev) 26.20 Left Ulnar (Mrkrs) (Abd Dig Min) 27.33 EMG Side Muscle Nerve Root Ins Act Fibs Amp Dur Recrt Comment Left 1stDorInt Ulnar C8-T1 Nml Nml Nml Nml Nml Left Ext Indicis Radial (Post Int) C7-8 Nml Nml Nml Nml Nml Left Ext Digitorum Radial (Post Int) C7-8 Nml Nml Nml Nml Nml Left BrachioRad Radial C5-6 Nml Nml Nml Nml Nml Left PronatorTeres Median C6-7 Nml Nml Nml Nml Nml Left Abd Poll Brev Median C8-T1 Nml Nml Nml Nml Nml Left ABD Dig Min Ulnar C8-T1 Nml Nml Nml Nml Nml Left Biceps Musculocut C5-6 Nml Nml Nml Nml Nml Left Triceps Radial C6-7-8 Nml Nml Nml Nml Nml Left Deltoid Axillary C5-6 Nml Nml Nml Nml Nml MTDD
== END 2023-12-06 13:33 | disposition home or self-care (01) ==
PROVIDERS: PCP Nurse Practitioner Adult Health; Visit Provider Nurse Practitioner Adult Health
DX: G56.32 Lesion of radial nerve, left upper limb (principal)
CPT/HCPCS: 95886; 95909

== ENCOUNTER 2023-12-21 06:39 | Outpatient (CLI) | payer BC, SELFPAY ==
--- NOTE | ~2023-12-21 | MR_ITS ---
EXAMINATION: MR elbow LT wo/w con DATE: 12/21/2023 08:20 INDICATION: Mass at the proximal left forearm TECHNIQUE: Magnetic resonance imaging (MRI) of the left elbow was performed without and with 20 mL Mu ltihance intravenous contrast. A marker was placed over the mass. Sequences included axial, sagittal and coronal T1-weighted FSE, T2-weighted FS FSE, T1-weighted FS FSE and post contrast T1-weighted FS FSE. COMPARISON: Ultrasound dated 11/25/2023 FINDINGS: Osseous/other: Normal alignment. Normal marrow signal with no marrow edema, fracture, osteochondral lesion or abnor mal marrow replacing process. There is a peripheral IV within a subcutaneous vein at the lateral aspe ct of the proximal left forearm. No abnormal masses, fluid collections or abnormally enhancing lesion s identified. Tendons: Triceps, biceps brachii and brachialis tendons are normal. Common flexor tendon wad is normal. The c ommon extensor tendon wad is normal. Ligaments: The medial and lateral collateral ligament complexes are normal. Cubital tunnel: Cubital tunnel is unremarkable with normal signal and caliber of the ulnar nerve. Fluid: Physiologic amount of fluid the elbow joint. IMPRESSION: 1. Normal pre and postcontrast MRI of the left elbow. No abnormal masses or abnormally enhancing lesi ons identified. Reviewed, dictated and finalized at location B. IMPRESSION: 1. Normal pre and postcontrast MRI of the left elbow. No abnormal masses or abn ormally enhancing lesions identified.
== END 2023-12-21 06:40 | disposition home or self-care (01) ==
PROVIDERS: PCP Nurse Practitioner Adult Health; Visit Provider Plastic Surgery
DX: G56.32 Lesion of radial nerve, left upper limb (principal); R22.32 Localized swelling, mass and lump, left upper limb; M65.30 Trigger finger, unspecified finger
CPT/HCPCS: 73223; A9577

== ENCOUNTER 2024-02-13 15:15 | Outpatient (CLI) | payer BC, SELFPAY ==
--- NOTE | ~2024-02-13 | US_ITS ---
EXAMINATION: US pelvic complete w TV DATE: 02/13/2024 15:43 INDICATION: Pelvic and perineal pain TECHNIQUE: Multiple transabdominal and endovaginal sonographic images of the pelvis were obtained. COMPARISON: None. FINDINGS: The uterus measures 7.8 x 4.1 x 3.4 cm. There is 8 x 5 mm cystic lesion at the anterior lower uterine segment likely at the site of a prior section scar. Refraction artifact extending posterior ly from the region of the suspected section scar obscures the endometrial complex at the [place] fundus precluding measurement however this does not appear thickened. There is a small echogenic focus in this region of shadowing suggesting dystrophic calcification likely related to prior instru mentation with reported history of prior D&C and ablation. The right ovary measures 2.2 x 2.2 x 1.5 c m. The left ovary measures 3.3 x 3.5 x 2.9 cm. There is a 3.3 x 2.7 x 2.4 cm anechoic cyst in the lef t ovary. Vascular flow identified in both ovaries on color Doppler. There is no free fluid in the pel vis. IMPRESSION: 1. Small cystic structure at the anterior lower uterine segment likely along a prior section scar and echogenic focus along the largely obscured more cephalad endometrial complex suggesting dys trophic calcific location related to prior endometrial instrumentation. 2. 3.3 cm left ovarian cyst/follicle. Otherwise normal ovaries with vascular flow identified on color Doppler. Reviewed, dictated and finalized at location A. IMPRESSION: 1. Small cystic structure at the anterior lower uterine segment likely along a prior section scar and echogenic focus along the largely obscured more cephalad endometrial complex suggesting dystrophic calcific location related t o prior endometrial instrumentation. 2. 3.3 cm left ovarian cyst/follicle. Otherwise normal ovaries with vascular fl ow identified on color Doppler.
== END 2024-02-13 15:16 ==
LOC: GOSHIMG 15:16
PROVIDERS: PCP Nurse Practitioner Adult Health; Visit Provider Obstetrics & Gynecology
DX: R10.2 Pelvic and perineal pain (principal); N83.202 Unspecified ovarian cyst, left side
CPT/HCPCS: 76830; 76856

== ENCOUNTER 2024-03-13 16:30 | Outpatient (CLI) | payer BC, SELFPAY ==
[2024-03-13 18:02] LABS: Anion Gap 8 mmol/L (4-12); Blood Urea Nitrogen 11 mg/dL (7-17); Calcium 9.2 mg/dL (8.4-10.2); Carbon Dioxide 28 mmol/L (22-30); Chloride 102 mmol/L (98-107); Estimated Glomerular Filt Rate > 60; Glucose 83 mg/dL (65-110); Potassium 3.4 mmol/L (3.4-5.0); Sodium 138 mmol/L (137-145)
== END 2024-03-13 16:31 | disposition home or self-care (01) ==
LOC: ANHLAB 16:31
PROVIDERS: PCP Nurse Practitioner Adult Health; Visit Provider Anesthesiology
DX: E11.9 Type 2 diabetes mellitus without complications (principal)
CPT/HCPCS: 36415; 80048

== ENCOUNTER 2024-03-20 02:34 | Day surgery (SDC) | payer BC, SELFPAY ==
[2024-03-13 14:45] VITALS: BMI 34.9
--- NOTE | 2024-03-13 14:51 | PC.NURSE ---
Addendum entered by Avila Glynn RN 03/14/24 14:41: Correction, no food after midnight, Clear liquids stop at 0315am. Nothing to eat or drink after 315am. Original Note: Report to the Outpatient Waiting Room, entrance under the green pavilion located off [facility], at time _0915_ on date _[id number]_. Planned Procedure Time: _1115_.? Time changes happen often and if your time is changed the preop area will call you the afternoon before. - You and your visitor will be asked to self-screen and do not enter if you have any COVID symptoms. Please call surgeon if you need to reschedule. - A mask is optional within the hospital at this time. Patients may have clear liquids (water, carbonated beverages, clear teas, apple juice) until 3 hours prior to surgery with a maximum of 20 ounces. - No food from midnight until time of surgery and no smoking Take only the following medications with a SIP of water on the morning of surgery: ____Baclofen, Levothyroxine, and Metoprolol DO NOT STOP ANY OF YOUR OTHER PRESCRIPTION MEDICATIONS PRIOR TO SURGERY EXCEPT THE FOLLOWING Medications to discontinue per physician ____None Please no make-up, nail spanish, hairspray, perfume, deodorant, or body powder the day of surgery.? No jewelry (including any body piercings) or valuables the day of surgery, leave them at home.? Please take a shower or bath the night before, or the morning of, surgery with an antibacterial soap.? Wear comfortable, loose fitting clothing.? - Jewelry must be removed prior to entering the operating room.? Rings and piercings that are not removed may be cut off. - The hospital will not accept responsibility for valuables.? - Please leave all valuables, including medications, at home the day of surgery. If you are going home after surgery, a licensed short haul driver must drive you home.? - NO public transportation without another adult if you receive anesthesia. - We recommend that an adult stay with you for 24 hours following discharge. - We also recommend that you do not drive, make important decision, drink alcoholic beverages, or take any drugs that were not prescribed by your health care provider for at least 24 hours after your discharge time. Follow any additional instructions given to you from your surgeon. Telephone instructions given to __Xiomara___and asked if any additional questions and then verbalized understanding. Patient advised to call surgeon office or pre surgery nurse liaison [phone] if any additional questions.
--- NOTE | 2024-03-20 07:27 | PM.HPGS ---
History of Present Illness History of Present Illness Consent: Risks, benefits, and alternatives have been discussed and questions answered. Patient agrees to proceed with procedure. Chief complaint: left middle finger trigger finger Narrative: Patient seen and examined in pre-operative holding area. No interval change in medical history or symptoms. Patient recalls previous discussion of benefits and alternatives to procedure. Continues to desire to proceed with Left midle finger a1 kael release, left endoscopic possible open carpal tunnel release and left cubital tunnel release and steroid injection around left radial tunnel. Reviewed procedure, post-op expectations and risks including but not limited to bleeding, infection, injury to tendon/nerve/vessel, decreased hand function, stiffness, RSD, no change or worsening of symptoms. I discussed the possible use of assistants and their participation in the case. Patient stated understanding and signed the consent form wishing to proceed. [facility] Past Medical History Medical History Elevated glucose Essential (primary) hypertension Fatty (change of) liver, not elsewhere classified GERD (gastroesophageal reflux disease) Hypertension Hypothyroidism, unspecified Metabolic syndrome Radial tunnel syndrome of left upper extremity Screening mammogram, encounter for Thyroid disease Type 2 diabetes mellitus without complications Surgical History Surgical History History of bladder suspension procedure (01/09/23) bladder sling History of (11/24/02) History of dilation and curettage 01/03/13 hscope d&c/tubal ligation History of endometrial ablation 05/02/13 hscope d&c/endo ablation--secretory endometrium History of laparoscopy (06/23/11) Bilateral tubal ligation using Filshie clips, laparoscopic lysis of adhesions, laparoscopic resection of a left adnexal mass History of tubal ligation (06/23/11) 06/23/11 Bilateral tubal ligation using Filshie clips, laparoscopic lysis of adhesions, laparoscopic resection of a left adnexal mass 01/03/13 hscope d&c w/tubal ligation Family History Family History Father Hypertension Diabetes mellitus Mother Hypertension Diabetes mellitus Breast cancer, Onset Age: 64 double mastectomy Grandparent Family history of lung cancer Family history of coronary artery disease Diabetes mellitus maternal grandmother Hypertension Breast cancer, Onset Age: 80 maternal grandmother Sibling Hypertension Other Depression Social History Social History Smoking status: Never smoker Second hand tobacco smoke exposure: No Alcohol intake: current Alcohol use details: very rarely Substance use: never Substance use type: does not use Do You Feel Safe in your Home?: Yes Lack of Transportation: No Lack of Food: Never True Current Housing: I Have Housing Concerned About Future Housing: No Difficulty Paying Gas/Electric Bills: No Difficulty Paying for Meds: No Currently Unemployed: No Education: High School Diploma/GED Difficulty w/ Childcare or Family Care: No Living arrangements: other Additional living arrangements comments: Occupation/Education: occupation 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
--- NOTE | 2024-03-20 07:53 | W.PM.PROC2 ---
Procedure Note - Detailed Date of Procedure 03/20/24 Pre-op Diagnosis left middle finger trigger finger, left carpal tunnel, left cubital tunnel and left radial tunnel syndrome Post-op Diagnosis Same Procedure Performed left middle finger a1 kael relese, left ectr, left CuTR, left radial tunnel steroid injection Surgeon Marbin Ware MD [employer] Mayte Valdes PA-C Anesthesia MAC Description of Procedure INFORMED CONSENT: The patient was seen and examined and marked in the pre-op area.? The patient signed the consent form. PROCEDURE IN DETAIL:The patient taken back to OR on the stretcher in supine position. Time out performed with anesthesia, surgeon and staff agreeing on patient's name site and surgery to be performed SCDs were placed on the lower extremities and inflated. A tourniquet was placed on {left} upper extremity and antibiotics given IV After anesthesia administered sedation I injected {10}cc 1%lido with epi and 0.5% marcaine plain at the operative sites The?{left upper extremity}?was prepped and draped in sterile fashion the??{left upper extremity} was? exsanguinated with Esmarch bandage and tourniquet inflated to 250mmHg I made a transverse incision in the {left} volar distal wrist crease through skin and dermis with 15 blade scalpel.? Littler scissors spread down to antebrachial fascia. A small incision was made in antebrachial fascia allowing access to Carpal tunnel. I proceeded with sequential dilation staying in line with the ring finger and hugging the hook of the hamate.? I then used the synovial elevator to free any adhesions from the underside of the transverse carpal ligament. Next I was able to insert the Microaire endoscopic carpal tunnel device with direct visualization of the transverse fibers on the monitor and proceeded with complete segmental retrograde release of the ligament in its entirety.? I irrigated with normal saline and closed with 4-0 monocryl for dermis and subcuticular closure. I next proceeded with making a longitudinal incision between two heads for flexor carpi ulnaris at end of {left} cubital tunnel with 15 blade scalpel.? Littler scissors were used to spread down to FCU fascia.? An incision was made in FCU fascia and ulnar nerve identified exiting cubital tunnel.? I proceeded with complete retrograde release of the cubital tunnel including 7cm proximal for the intermuscular septum.? The nerve appeared healthy with visible vaso nervorum.? There was no subluxation on full elbow range of motion. ? I irrigated with normal saline and closure with 4-0 monocryl for dermis and subcuticular. Next, i made a longitudinal incision over left middle finger A1 kael through skin and dermis with 15 blade scalpel. Littler scissors were used to spread down to the kael. I initially incised the kael with 15 blade then used littler scissors to spread above and below it proximally and distally and completed the transection entirely. Ragnell retractor was used to withdrwaw the FDS and FDP tendon for inspection which were free of masses or synovitis and gliding smoothly in the sheath without triggering or crepitus. I irrigated with normal saline and closed with 4-0 chromic A dressing of Dermabond for the wrist and elbow and xeroform for the middle finger followed by Susanax4, carlos, and a volar wrist and posterior elbow splint was applied for patient safety, security, and comfort and secured with a anusha bandages after the tourniquet was let down noting the hand was warm and well perfused. Next I proceeded with injecting 0.5cc 1%lidocaine plain and 0.5cc kenolog 40 around the left radial tunnel at point of patient maxium tenderness. The patient was then awaken from anesthesia and transferred to the recovery room in stable condition.? Complications - none EBL- 0cc Disposition - home in stable conditions Mayte Valdes PA-c was essential for positioining, retraction, closure and dressing placement [facility]illing S[facility]
[2024-03-20 10:35] VITALS: BP 115/73; PULSE 69; RESP 16; TEMP 36.2; O2SAT 99
[2024-03-20] MEDS: LACTATED RINGERS 1,000 ML 30 ML IV CONT (11:00)
--- NOTE | 2024-03-20 11:08 | WPDANESEPPF ---
Anes - Initial Pre Proc Eval Procedure: Operation Date: 03/20/24 13:00 Proposed Procedures p Left Middle Finger A-1 Rosetta Release, - Marbin Ware MD s Left Endoscopic Carpal Tunnel Release, Possible Open, Left Cubital Tunnel Release, Steroid Injection Radial Tunnel Area - Marbin Ware MD Date/Time: 03/20/24 11:08 Surgeon: Marbin Ware MD Pre Op Diagnosis: left middle finger trigger finger Patient Data Age: 48 Gender: F Height: 1.57 m Weight: 86.8 kg Allergies Allergy/AdvReac Type Severity Reaction Status Date / Time No Known Allergies Allergy Verified 03/18/24 17:34 Home Medications Medication Instructions Recorded Confirmed Type hydrochlorothiazide 25 mg tablet 25 mg PO DAILY #90 tabs 10/11/23 03/18/24 Rx levothyroxine 100 mcg tablet 100 mcg PO DAILY #90 tabs 10/11/23 03/18/24 Rx metoprolol succinate 100 mg 100 mg PO DAILY #90 tabs 10/11/23 03/18/24 Rx tablet,extended release 24 hr omeprazole 40 mg capsule,delayed 40 mg PO DAILY #90 caps 10/11/23 03/18/24 Rx release baclofen 5 mg tablet 5 mg PO BID #180 tabs 11/15/23 03/18/24 Rx fluoxetine 20 mg capsule See Rx Instructions .Route 01/22/24 03/18/24 Rx .COMPLEX #90 caps tirzepatide 15 mg/0.5 mL 15 mg (0.5 mL) subcut WEEKLY #2 mL 01/31/24 03/18/24 Rx subcutaneous pen injector (Dee) ibuprofen 200 mg tablet 400 mg PO Q6H PRN Pain, Moderate 03/18/24 03/18/24 History dbpejklevxhg-Tb-yxcx-minerals 27 1 tablet PO DAILY 03/18/24 03/18/24 History mg-0.4 mg tablet Patient hx anesthesia problems: none Family hx anesthesia problems: none Results Review: All pre-operative results and documents have been reviewed as part of the pre-operative evaluation. [facility] Past Medical History Medical History Elevated glucose Essential (primary) hypertension Fatty (change of) liver, not elsewhere classified GERD (gastroesophageal reflux disease) Hypertension Hypothyroidism, unspecified Metabolic syndrome Radial tunnel syndrome of left upper extremity Screening mammogram, encounter for Thyroid disease Type 2 diabetes mellitus without complications Surgical History Surgical History History of bladder suspension procedure (01/09/23) bladder sling History of (11/24/02) History of dilation and curettage 01/03/13 hscope d&c/tubal ligation History of endometrial ablation 05/02/13 hscope d&c/endo ablation--secretory endometrium History of laparoscopy (06/23/11) Bilateral tubal ligation using Filshie clips, laparoscopic lysis of adhesions, laparoscopic resection of a left adnexal mass History of tubal ligation (06/23/11) 06/23/11 Bilateral tubal ligation using Filshie clips, laparoscopic lysis of adhesions, laparoscopic resection of a left adnexal mass 01/03/13 hscope d&c w/tubal ligation Family History Family History Father Hypertension Diabetes mellitus Mother Hypertension Diabetes mellitus Breast cancer, Onset Age: 64 double mastectomy Grandparent Family history of lung cancer Family history of coronary artery disease Diabetes mellitus maternal grandmother Hypertension Breast cancer, Onset Age: 80 maternal grandmother Sibling Hypertension Other Depression Social History Social History Smoking status: Never smoker Second hand tobacco smoke exposure: No Alcohol intake: current Alcohol use details: very rarely Substance use: never Substance use type: does not use Do You Feel Safe in your Home?: Yes Lack of Transportation: No Lack of Food: Never True Current Housing: I Have Housing Concerned About Future Housing: No Difficulty Paying Gas/Electric Bills: No Difficulty Paying for Meds: No Currently Unemployed: No Education:
[2024-03-20 11:10] LABS: Glucose Point of Care 99 mg/dl (65-105)
[2024-03-20 11:26] VITALS: BMI 34.8
[2024-03-20 11:30] LABS: BEDSIDEPREGUCG Negative (Negative)
[2024-03-20] MEDS: ceFAZolin 2 GM/D5W 50 ML 2 GM/50 ML BAG IVPB (11:46)
[2024-03-20] MEDS: TRIAMCINOLONE ACET INJ 40 MG/ML VIAL 20 MG IM (11:49)
[2024-03-20] MEDS: LIDO 1%/EPINEPHRINE 1:100,000 50 ML VIAL INFILTRATE (11:53)
[2024-03-20] MEDS: BUPivacaine HCL 0.5% 10 ML AMP 5 ML INFILTRATE ×2 (11:54→11:56)
[2024-03-20] MEDS: LIDOCAINE HCL 1% LOCAL INJ 10 ML VIAL 5 ML INFILTRATE (11:55)
[2024-03-20 12:21] VITALS: BP 108/65; PULSE 80; RESP 20; O2SAT 97
[2024-03-20 12:45] VITALS: BP 110/60; PULSE 78; RESP 20
[2024-03-20 13:15] VITALS: BP 110/62; PULSE 78; RESP 20
== END 2024-03-20 13:25 | disposition home or self-care (01) ==
PROVIDERS: PCP Nurse Practitioner Adult Health; Visit Provider Plastic Surgery
PROC: (CPT 26055; principal; 2024-03-20 13:00)
PROC: 01N54ZZ Release Median Nerve, Percutaneous Endoscopic Approach (ICD-10-PCS; CPT 29848; 2024-03-20 13:00)
DX: M65.332 Trigger finger, left middle finger (principal); G56.02 Carpal tunnel syndrome, left upper limb; G56.22 Lesion of ulnar nerve, left upper limb; G56.32 Lesion of radial nerve, left upper limb; I10 Essential (primary) hypertension; E03.9 Hypothyroidism, unspecified; E11.9 Type 2 diabetes mellitus without complications; K21.9 Gastro-esophageal reflux disease without esophagitis; K76.0 Fatty (change of) liver, not elsewhere classified; Z79.85 Long-term (current) use of injectable non-insulin antidiabetic drugs
CPT/HCPCS: 26055; 29848; 64718; 20550; 36415; 82948; 85027; 86850; 86900; 86901; 93005; J0690; J2704; J3010; J3301; J7120

== ENCOUNTER 2024-03-20 10:02 | Outpatient (CLI) | payer BC, SELFPAY ==
--- NOTE | 2024-03-20 10:15 | ECG_ITS ---
Test Date: 2024-03-20 10:30:33 Measurements Intervals [place] Rate: 84 P: 49 [place]: 150 QRS: 5 QRSD: 76 T: 26 QT: 421 QTc: 500 Interpretive Statements SINUS RHYTHM BORDERLINE R WAVE PROGRESSION, ANTERIOR LEADS BASELINE ARTIFACT- II, III, AVR, AVL, AVF BORDERLINE ECG No previous ECG available for comparison Electronically Signed On 03-20-2024 10:35:30 CDT by Boy Clayton D.O.
[2024-03-20 10:49] LABS: Hematocrit 38.7 % (37.0-47.0); Hemoglobin 13.3 g/dL (12.0-15.0); Mean Corpuscular HGB Conc 34.4 g/dl (32-36); Mean Corpuscular Hemoglobin 32.1 pg (26-34); Mean Corpuscular Volume 93.5 fl (80-100); Mean Platelet Volume 11.7 fl (7.4-10.4); Platelet Count Result 202 k/mm3 (150-375); Red Blood Count 4.14 M/mm3 (4.2-5.4); Red Cell Distribution Width 12.1 % (11.5-14.5); White Blood Count 5.5 K/mm3 (4.5-10.0)
== END 2024-03-20 10:03 | disposition home or self-care (01) ==
LOC: ANHSURGERY 10:06
PROVIDERS: PCP Nurse Practitioner Adult Health; Visit Provider Obstetrics & Gynecology
DX: I10 Essential (primary) hypertension (principal); N92.1 Excessive and frequent menstruation with irregular cycle
CPT/HCPCS: 36415; 85027; 86850; 86900; 86901; 93005

== ENCOUNTER 2024-03-28 03:24 | Day surgery (SDC) | payer BC, SELFPAY ==
[2024-03-18 17:42] VITALS: BMI 34.7
--- NOTE | 2024-03-18 18:12 | PC.NURSE ---
Report to the Outpatient Waiting Room, entrance under the green pavilion located off [facility], at 0600 on 03-28-24. Planned Procedure Time: 0730.? Time changes happen often and if your time is changed the preop area will call you the afternoon before. - You and your visitor will be asked to self-screen and do not enter if you have any COVID symptoms. Please call surgeon if you need to reschedule. - A mask is optional within the hospital at this time. Patients may have clear liquids (water, carbonated beverages, clear teas, apple juice) until 3 hours prior to surgery with a maximum of 20 ounces. 0430 - No food from midnight until time of surgery and no smoking - Infants may have breast milk until 4 hours before surgery, formula 6 hours prior to surgery. - Children will be allowed to drink immediately following surgery.? If applicable, please bring a bottle or sippy cup to assist with drinking. Juice, water, soda, and popsicles are readily available.? For infants on formula, please bring formula the day of surgery.? Pacifiers are allowed. Take only the following medications with a SIP of water on the morning of surgery: levothyroxine, metoprolol DO NOT STOP ANY OF YOUR OTHER PRESCRIPTION MEDICATIONS PRIOR TO SURGERY EXCEPT THE FOLLOWING Medications to discontinue per physician: Vitamins and supplements; ibuprofen Date to take last dose: 03-25-24; per Dr. Gilliam Please no make-up, nail kittitian, hairspray, perfume, deodorant, or body powder the day of surgery.? No jewelry (including any body piercings) or valuables the day of surgery, leave them at home.? Please take a shower or bath the night before, or the morning of, surgery with an antibacterial soap.? Wear comfortable, loose fitting clothing.? Children are encouraged to wear pajamas. - Jewelry must be removed prior to entering the operating room.? Rings and piercings that are not removed may be cut off. - The hospital will not accept responsibility for valuables.? - Please leave all valuables, including medications, at home the day of surgery. If you are going home after surgery, a licensed regional company truck driver must drive you home.? - NO public transportation without another adult if you receive anesthesia. - We recommend that an adult stay with you for 24 hours following discharge. - We also recommend that you do not drive, make important decision, drink alcoholic beverages, or take any drugs that were not prescribed by your health care provider for at least 24 hours after your discharge time. For Pediatric surgeries, we recommend two adults accompany the child home. Follow any additional instructions given to you from your surgeon. Telephone instructions given to Xiomara Cotto and asked if any additional questions and then verbalized understanding. Patient advised to call surgeon office or pre surgery nurse liaison [phone] if any additional questions.
--- NOTE | 2024-03-26 15:08 | PM.IMHP ---
H&P: HPI History of Present Illness Date/Time: 03/26/24 15:08 48-year-old 1 para 1001 female presents with complaints of heavy vaginal bleeding with clotting, as well as pelvic pain she has undergone endometrial ablation in the past did work reasonably well with intermittent cramping discomfort since that time but over the past 3-4 months that is significantly heavier bleeding and more discomfort than she had had previously. Ultrasound reveals 8x4x4 cm uterus with 1cm cystic lesion in the lower segment at the area of the prior delivery. Also with dystrophic calcification likely related to prior endometrial ablation. Multiple options were discussed and patient desires to proceed with hysterectomy and ovarian preservation. Chief Complaint: Menometrorrhagia Review of Systems Review of Systems: All systems reviewed & are unremarkable except as noted in HPI and below PMFSH Past Medical History Medical History (Updated 03/26/24 @ 15:14 by Vickey Gilliam MD) Elevated glucose Essential (primary) hypertension Fatty (change of) liver, not elsewhere classified GERD (gastroesophageal reflux disease) Hypertension Hypothyroidism, unspecified Metabolic syndrome Radial tunnel syndrome of left upper extremity Screening mammogram, encounter for Thyroid disease Type 2 diabetes mellitus without complications Surgical History Surgical History (Updated 03/26/24 @ 15:14 by Vickey Gilliam MD) History of bladder suspension procedure (01/09/23) bladder sling History of (11/24/02) History of dilation and curettage 01/03/13 hscope d&c/tubal ligation History of endometrial ablation 05/02/13 hscope d&c/endo ablation--secretory endometrium History of laparoscopy (06/23/11) Bilateral tubal ligation using Filshie clips, laparoscopic lysis of adhesions, laparoscopic resection of a left adnexal mass History of tubal ligation (06/23/11) 06/23/11 Bilateral tubal ligation using Filshie clips, laparoscopic lysis of adhesions, laparoscopic resection of a left adnexal mass 01/03/13 hscope d&c w/tubal ligation Family History Family History Father Hypertension Diabetes mellitus Mother Hypertension Diabetes mellitus Breast cancer, Onset Age: 64 double mastectomy Grandparent Family history of lung cancer Family history of coronary artery disease Diabetes mellitus maternal grandmother Hypertension Breast cancer, Onset Age: 80 maternal grandmother Sibling Hypertension Other Depression Social History Social History Smoking status: Never smoker Second hand tobacco smoke exposure: No Alcohol intake: current Alcohol use details: very rarely Substance use: never Substance use type: does not use Do You Feel Safe in your Home?: Yes Lack of Transportation: No Lack of Food: Never True Current Housing: I Have Housing Concerned About Future Housing: No Difficulty Paying Gas/Electric Bills: No Difficulty Paying for Meds: No Currently Unemployed: No Education: High School Diploma/GED Difficulty w/ Childcare or Family Care: No Living arrangements: other Additional living arrangements comments: Occupation/Education: occupation 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
[2024-03-28] VITALS (9 sets, daily range): BP systolic 114–149; BP diastolic 58–92; PULSE 70–77; RESP 12–16; TEMP 36.3–37.2; O2SAT 93–100; BMI 34.2
[2024-03-28] MEDS: LACTATED RINGERS 1,000 ML 30 ML IV CONT ×2 (06:55→09:17)
[2024-03-28] MEDS: KETOROLAC 15 MG/ML VIAL (*BKC) IV PUSH (07:15)
[2024-03-28] MEDS: ACETAMINOPHEN 500 MG TABLET 1000 MG PO ×3 (07:15→17:57)
--- NOTE | 2024-03-28 07:15 | WPDHPUPDATE1 ---
History and Physical Update Update Date/Time: 03/28/24 07:15 History and Physical has been reviewed, including an updated exam of the patient. There are NO changes in the patient's condition. Risks, benefits, and alternatives have been discussed and questions answered. Patient agrees to proceed with procedure.
[2024-03-28 07:16] LABS: Glucose Point of Care 82 mg/dl (65-105)
[2024-03-28 07:16] LABS: Glucose Point of Care 78 mg/dl (65-105)
--- NOTE | 2024-03-28 07:28 | WPDANESEPPF ---
Anes - Initial Pre Proc Eval Procedure: Operation Date: 03/28/24 07:30 Proposed Procedures p Robotic Assisted Total Laparoscopic Hysterectomy with Bilateral Salpingectomy - Vickey Gilliam MD Date/Time: 03/28/24 07:28 Surgeon: Vickey Gilliam MD Pre Op Diagnosis: Menometrorrhagia Patient Data Age: 48 Gender: F Height: 1.57 m Weight: 84.95 kg Last Vital Signs Temp 97.5 F L 03/28/24 06:11 Pulse 76 03/28/24 06:11 Resp 16 03/28/24 06:11 BP 140/92 H 03/28/24 06:11 Pulse Ox 100 03/28/24 06:11 O2 Del Method Room Air 03/28/24 06:11 Allergies Allergy/AdvReac Type Severity Reaction Status Date / Time No Known Allergies Allergy Verified 03/28/24 07:22 Home Medications Medication Instructions Recorded Confirmed Type hydrochlorothiazide 25 mg tablet 25 mg PO DAILY #90 tabs 10/11/23 03/28/24 Rx levothyroxine 100 mcg tablet 100 mcg PO DAILY #90 tabs 10/11/23 03/28/24 Rx metoprolol succinate 100 mg 100 mg PO DAILY #90 tabs 10/11/23 03/28/24 Rx tablet,extended release 24 hr omeprazole 40 mg capsule,delayed 40 mg PO DAILY #90 caps 10/11/23 03/18/24 Rx release baclofen 5 mg tablet 5 mg PO BID #180 tabs 11/15/23 03/20/24 Rx fluoxetine 20 mg capsule See Rx Instructions .Route 01/22/24 03/18/24 Rx .COMPLEX #90 caps tirzepatide 15 mg/0.5 mL 15 mg (0.5 mL) subcut WEEKLY #2 mL 01/31/24 03/18/24 Rx subcutaneous pen injector (Dee) ibuprofen 200 mg tablet 400 mg PO Q6H PRN Pain, Moderate 03/18/24 03/28/24 History fjargptflswi-Oq-sbrc-minerals 27 1 tablet PO DAILY 03/18/24 03/28/24 History mg-0.4 mg tablet tramadol 50 mg tablet 50 mg PO Q6H PRN pain #12 tabs 03/20/24 Rx Laboratory Tests 03/28/24 03/28/24 07:11 07:12 POC Capillary Glucose 78 mg/dl 82 mg/dl (65-105) (65-105) Patient hx anesthesia problems: none Family hx anesthesia problems: none Results Review: All pre-operative results and documents have been reviewed as part of the pre-operative evaluation. [facility] Past Medical History Medical History Elevated glucose Essential (primary) hypertension Fatty (change of) liver, not elsewhere classified GERD (gastroesophageal reflux disease) Hypertension Hypothyroidism, unspecified Metabolic syndrome Radial tunnel syndrome of left upper extremity Screening mammogram, encounter for Thyroid disease Type 2 diabetes mellitus without complications Surgical History Surgical History History of bladder suspension procedure (01/09/23) bladder sling History of (11/24/02) History of dilation and curettage 01/03/13 hscope d&c/tubal ligation History of endometrial ablation 05/02/13 hscope d&c/endo ablation--secretory endometrium History of laparoscopy (06/23/11) Bilateral tubal ligation using Filshie clips, laparoscopic lysis of adhesions, laparoscopic resection of a left adnexal mass History of tubal ligation (06/23/11) 06/23/11 Bilateral tubal ligation using Filshie clips, laparoscopic lysis of adhesions, laparoscopic resection of a left adnexal mass 01/03/13 hscope d&c w/tubal ligation Family History Family History Father Hypertension Diabetes mellitus Mother Hypertension Diabetes mellitus Breast cancer, Onset Age: 64 double mastectomy Grandparent Family history of lung cancer Family history of coronary artery disease Diabetes mellitus maternal grandmother Hypertension Breast cancer, Onset Age: 80 maternal grandmother Sibling Hypertension Other Depression Social History Social History Smoking status: Never smoker Second hand tobacco smoke exposure: No Alcohol intake: current Alcohol use details: very rarely Substance use: never Substance use type: does not
[2024-03-28] MEDS: ceFAZolin 2 GM/D5W 50 ML 2 GM/50 ML BAG IVPB (07:34)
--- NOTE | 2024-03-28 08:57 | W.PM.PROC2 ---
Procedure Note - Detailed Date of Procedure 03/28/24 Pre-op Diagnosis 1. Menometrorrhagia 2. Dysmenorrhea 3. Prior section 4. Post endometrial ablation syndrome Post-op Diagnosis Same (5. left ovarian cyst x2... 6. Adhesions ) Procedure Performed 1. Adhesiolysis 2. left ovarian cystectomy x2 3. left ovarian cystotomy 4. Robotic assisted laparoscopic hysterectomy with salpingectomy Surgeon Vickey Gilliam MD Anesthesia General Findings 1. Mildly enlarged uterus 2. Omental adhesions to the anterior abdominal wall 3. Left ovarian cyst x3 Description of Procedure Patient was prepped and draped usual manner for this procedure. Abdominal trocar sites were placed under direct visualization after vaginal instruments were placed for uterine mobility throughout the case. Instruments were placed after attached to the [employer] system. Findings were noted as above. First the omental adhesions were cauterized and cut and taken down without difficulty. Then the left ovarian cyst ingram were were incised and removed x2 with a smaller cyst just being opened. Right ovary without abnormality. At this point the mesial salpinx bilaterally was cauterized and cut to remove the segment of tube. Round ligament was cauterized and cut posterior leaf the broad ligament was incised utero-ovarian ligament was cauterized and cut to drop the ovary out of the operative field. Uterine vessels were skeletonized cauterized and cut bilaterally. Bladder was then filled with fluid to ascertain its position prior to creating the bladder flap. Bladder flap was then formed without difficulty and with the bladder staying intact. Bladder was then deflated. Posterior colpotomy incision was made this was carried circumferentially to separate cervix from the vagina, and the uterus was delivered into the vagina. Vaginal cuff was then closed using V lock suture from the right angle to the midline and from the left LM midline with good approximation hemostasis noted. Irrigation was undertaken and no bleeding was noted. Hematuria was placed throughout empirically. Gas was allowed to escape and incisions were approximated 4-0 Monocryl after the trocars removed. Patient was then sent to recovery room in stable condition. Estimated Blood Loss 50 Urine Output 200 Drains No Packing No Pathology Yes Complications No immediate complications Condition Stable Disposition PACU [facility] Billing Surgery - Charge Forward: Surgery Billing
[2024-03-28 09:28] LABS: Glucose Point of Care 113 mg/dl (65-105)
[2024-03-28] MEDS: fentaNYL CITRATE INJ (*CRX) 100 MCG/2 ML VIAL 25 MCG IV PUSH ×4 (10:00→10:10)
--- NOTE | 2024-03-28 10:26 | ADMGEN ---
This patient, Xiomara Cotto, was admitted to OB 2nd Floor Room 288-00. Patient/family oriented to hospital policies and general routines including ID bracelet, bed and alarms, visiting hours, pain management, procedures, bathroom and other care routines, personal items, smoking policy, room service/diet, and visiting hours. Information on how to activate the Rapid Response Team has been discussed. Patient/Family are encouraged to report perceived risks to care and to ask questions if they do not understand what they are told or what they should do.
[2024-03-28] MEDS: DEXTROSE 5%/0.45% SOD CHL 1,000 ML 125 ML IV CONT (10:55)
[2024-03-28] MEDS: MORPHINE SULFATE (*CRX) 4 MG/ML INJ IV PUSH ×2 (10:56→20:28)
[2024-03-28] MEDS: ONDANSETRON INJ 4 MG/2 ML VIAL IV PUSH (11:01)
[2024-03-28] MEDS: KETOROLAC 30 MG/ML VIAL (*BKC) IV PUSH ×2 (12:00→17:57)
[2024-03-28] MEDS: SIMETHICONE 80 MG TAB.CHEW PO ×2 (12:00→17:57)
[2024-03-28] MEDS: oxyCODONE HCL (*CRX) 5 MG TAB IR PO ×2 (13:08→17:15)
[2024-03-28] MEDS: DOCUSATE SODIUM 100 MG CAPSULE PO (17:57)
[2024-03-28] MEDS: FLUoxetine HCL 20 MG CAPSULE PO (21:16)
[2024-03-29] MEDS: KETOROLAC 30 MG/ML VIAL (*BKC) IV PUSH (01:06)
[2024-03-29] MEDS: ACETAMINOPHEN 500 MG TABLET 1000 MG PO ×2 (01:06→07:06)
[2024-03-29 01:12] VITALS: BP 126/71; PULSE 69; RESP 14; TEMP 37; O2SAT 97
[2024-03-29 05:10] VITALS: BP 124/73; PULSE 64; RESP 14; TEMP 37.1; O2SAT 97
[2024-03-29 06:01] LABS: Basophils Percent Auto 0.2 % (0.2-1.2); Hematocrit 34.3 % (37.0-47.0); Hemoglobin 12.3 g/dL (12.0-15.0); Immature Granulocyte Absolute 0.04 K/mm3 (0.00-0.031); Immature Granulocyte Percent A 0.4 % (0-0.5); Lymphocytes Absolute Auto 2.58 K/mm3 (0.9-3.2); Lymphocytes Percent Auto 26.8 % (18.3-44.2); Mean Corpuscular HGB Conc 35.9 g/dl (32-36); Mean Corpuscular Hemoglobin 33.2 pg (26-34); Mean Corpuscular Volume 92.5 fl (80-100); Mean Platelet Volume 10.9 fl (7.4-10.4); Monocytes Absolute Auto 0.8 K/mm3 (0.1-0.6); Neutrophils Absolute Auto 6.2 K/mm3 (1.3-6.7); Neutrophils Percent Auto 64.6 % (45.5-73.1); Platelet Count Result 181 k/mm3 (150-375); Red Blood Count 3.71 M/mm3 (4.2-5.4); White Blood Count 9.6 K/mm3 (4.5-10.0)
[2024-03-29] MEDS: LEVOTHYROXINE SODIUM 100 MCG TABLET PO (07:05)
[2024-03-29] MEDS: IBUPROFEN 600 MG TABLET PO (07:07)
[2024-03-29 08:15] VITALS: BP 115/65; PULSE 64; RESP 16; TEMP 36.6; O2SAT 100
[2024-03-29] MEDS: DOCUSATE SODIUM 100 MG CAPSULE PO (09:42)
[2024-03-29 09:43] VITALS: PULSE 70
[2024-03-29] MEDS: METOPROLOL SUCCINATE EXT REL 100 MG TABCR PO (09:43)
[2024-03-29] MEDS: THERAPEUTIC MULTIVITAMINS/MINERALS TAB (*BKC) 1 TABLET PO (09:43)
[2024-03-29] MEDS: SIMETHICONE 80 MG TAB.CHEW PO (09:43)
[2024-03-29] MEDS: PANTOPRAZOLE 40 MG TABLET PO (09:44)
[2024-03-29] MEDS: BACLOFEN 5 MG TABLET PO (09:44)
[2024-03-29] MEDS: hydroCHLOROthiazide 25 MG TABLET PO (09:45)
--- NOTE | 2024-03-29 09:59 | P.PNAN_ITS ---
Anes - Prog Note Post-Op Date/Time: 03/29/24 09:59 Cardiovascular status: normal Respiratory status: normal Airway patency: baseline Mental status: baseline Post-Op hydration status: normal Vital Signs: Last Vital Signs Temp 36.6 C 03/29/24 08:15 Pulse 70 03/29/24 09:43 Resp 16 03/29/24 08:15 BP 115/65 03/29/24 08:15 Pulse Ox 100 03/29/24 08:15 O2 Del Method Room Air 03/29/24 07:05 O2 Flow Rate 6 03/28/24 09:30 Pain Score (VAS): 09/02 I/O: Intake & Output 03/28/24 03/29/24 03/29/24 23:59 07:59 15:59 Intake Total 800 Output Total 540 300 Balance -540 500 Laboratory Tests 03/29/24 05:42 03/29/24 05:42 WBC 9.6 RBC 3.71 L Hgb 12.3 Hct 34.3 L MCV 92.5 MCH 33.2 MCHC 35.9 RDW 12.0 Plt Count 181 MPV 10.9 H Immature Gran % (Auto) 0.4 Neut % (Auto) 64.6 Lymph % (Auto) 26.8 [place] % (Auto) 8.0 Eos % (Auto) 0.0 Baso % (Auto) 0.2 Lymph # (Auto) 2.58 [place] # (Auto) 0.8 H Eos # (Auto) 0.0 Baso # (Auto) 0.0 Abs Immat Gran (auto) 0.04 H Absolute Neuts (auto) 6.2 Absolute Nucleated RBC 0.000 Nucleated RBC % 0.0 Post-procedural complaints: none Patient Feedback: Patient satisfied with anesthetic care.
== END 2024-03-29 10:44 | disposition home or self-care (01) ==
LOC: ANHSURGERY 06:06 → ANHOB2 17:36
PROVIDERS: PCP Nurse Practitioner Adult Health; Visit Provider Obstetrics & Gynecology
PROC: (CPT 58571; principal; 2024-03-28 07:30)
DX: N73.6 Female pelvic peritoneal adhesions (postinfective) (principal); K66.0 Peritoneal adhesions (postprocedural) (postinfection); N99.85 Post endometrial ablation syndrome; N83.02 Follicular cyst of left ovary; I10 Essential (primary) hypertension; E11.9 Type 2 diabetes mellitus without complications; K21.9 Gastro-esophageal reflux disease without esophagitis; E03.9 Hypothyroidism, unspecified; E88.810 Metabolic syndrome; G89.18 Other acute postprocedural pain; E07.9 Disorder of thyroid, unspecified; E66.9 Obesity, unspecified; Z68.34 Body mass index [BMI] 34.0-34.9, adult; Z79.85 Long-term (current) use of injectable non-insulin antidiabetic drugs; Z79.891 Long term (current) use of opiate analgesic; Z79.1 Long term (current) use of non-steroidal anti-inflammatories (NSAID); Z98.890 Other specified postprocedural states; Z98.51 Tubal ligation status; Z80.1 Family history of malignant neoplasm of trachea, bronchus and lung; Z80.3 Family history of malignant neoplasm of breast; Z82.49 Family history of ischemic heart disease and other diseases of the circulatory system
CPT/HCPCS: 58571; 58662; S2900; 36415; 82948; 85025; 88305; 88307; 99199; A9270; J0690; J1100; J1171; J1885; J2003; J2250; J2270; J2405; J2704; J3010; J7120; Q9968

== ENCOUNTER 2024-04-26 11:53 | Outpatient (CLI) | payer BC, SELFPAY ==
--- NOTE | ~2024-04-26 | US_ITS ---
US pelvic complete w TV DATE: 04/26/2024 12:25 INDICATION: Chronic pain post hysterectomy TECHNIQUE: Real-time imaging via transabdominal and transvaginal approaches COMPARISON: None FINDINGS: The uterus is surgically absent. The ovaries are not visualized. No pelvic mass lesion or abnormal pelvic fluid collection is detected. There is limited visualization due to no significant fluid within the urinary bladder, limiting the pelvic window. IMPRESSION: Status post hysterectomy Reviewed, dictated and finalized at [facility]. Reviewed, dictated and finalized at [facility]. IMPRESSION: Status post hysterectomy
== END 2024-04-26 11:54 | disposition home or self-care (01) ==
LOC: MICIMG 11:54
PROVIDERS: PCP Nurse Practitioner Adult Health; Visit Provider Obstetrics & Gynecology
DX: G89.28 Other chronic postprocedural pain (principal); Z90.710 Acquired absence of both cervix and uterus
CPT/HCPCS: 76830; 76856

== ENCOUNTER 2024-05-02 15:46 | Outpatient (CLI) | payer BC, SELFPAY ==
--- NOTE | ~2024-05-02 | MM_ITS ---
EXAMINATION: MM screening ju BI w kerri HISTORY: Screening TECHNIQUE: Craniocaudal and mediolateral oblique 3-D tomosynthesis images were obtained and synthetic 2-D images were generated. CAD analysis was submitted and interpreted. COMPARISON: Comparison to multiple prior studies sequentially, with oldest reviewed study dated 07/23. BREAST PARENCHYMAL COMPOSITION: Not dense: There are scattered areas of fibroglandular density. FINDINGS: There is no evidence of suspicious mass, calcification, or architectural distortion to sugg est malignancy in either breast. There has been no suspicious interval change. IMPRESSION: 1. No mammographic evidence of malignancy. 2. Recommend routine screening mammography in one year. BI-RADS Category 1: Negative Reviewed, dictated and finalized at [facility]. [facility] ADULT
== END 2024-05-02 15:47 | disposition home or self-care (01) ==
LOC: MICIMG 15:46
PROVIDERS: PCP Nurse Practitioner Adult Health; Visit Provider Obstetrics & Gynecology
DX: Z12.31 Encounter for screening mammogram for malignant neoplasm of breast (principal)
CPT/HCPCS: 77063; 77067

== ENCOUNTER 2024-07-24 08:35 | Outpatient (CLI) | payer BC, SELFPAY ==
--- NOTE | 2024-07-24 08:40 | EST_ITS ---
Patient Info Name: Xiomara Cotto Age: 49 years : 1975 Gender: Female Ht: 62 in Wt: 171 lbs BSA: 1.87 m2 HR: 71 bpm BP: 133 / 82 mmHg Exam Date: 07/24/2024 8:56 AM Exam Location: [facility] Patient Status: Outpatient Admit Date: 07/24/2024 Staff Ordering Physician: Emily Mei APRN Attending Provider: Emily Mei APRN Exercise Technologist: Анна Cummings [facility] Exercise Physician: Boy Clayton DO Exam Type: CA stress test treadmill Study Info A treadmill exercise stress test was performed. Summary 1. 1. Negative Gadiel exercise stress test for ischemic ST changes by ECG criteria. 2. 2. Good functional capacity, achieving 11 METs of workload. 3. 3. Appropriate HR response to exercise. 4. 4. Appropriate HR recovery at 1 minute post exercise. 5. 5. No imaging with stress testing. 6. 6. Patient informed of the above results. Protocol: Gadiel Stress ECG Details Stage: REST Duration (min): 1 min : 11 sec Speed (mph): 0.0 Grade (%): 0 HR (bpm): 72 SBP (mmHg): 133 DBP (mmHg): 82 METS: --- Stage: REST Duration (min): 12 min : 59 sec Speed (mph): 0.0 Grade (%): 0 HR (bpm): 80 SBP (mmHg): 133 DBP (mmHg): 82 METS: --- Stage: STAGE 1 Duration (min): 1 min : 0 sec Speed (mph): 1.7 Grade (%): 10 HR (bpm): 88 SBP (mmHg): 133 DBP (mmHg): 82 METS: --- Stage: STAGE 1 Duration (min): 2 min : 0 sec Speed (mph): 1.7 Grade (%): 10 HR (bpm): 97 SBP (mmHg): 133 DBP (mmHg): 82 METS: --- Stage: STAGE 1 Duration (min): 3 min : 0 sec Speed (mph): 1.7 Grade (%): 10 HR (bpm): 100 SBP (mmHg): 140 DBP (mmHg): 75 METS: --- Stage: STAGE 2 Duration (min): 1 min : 0 sec Speed (mph): 2.5 Grade (%): 12 HR (bpm): 109 SBP (mmHg): 140 DBP (mmHg): 75 METS: --- Stage: STAGE 2 Duration (min): 2 min : 0 sec Speed (mph): 2.5 Grade (%): 12 HR (bpm): 112 SBP (mmHg): 158 DBP (mmHg): 82 METS: --- Stage: STAGE 2 Duration (min): 3 min : 0 sec Speed (mph): 2.5 Grade (%): 12 HR (bpm): 113 SBP (mmHg): 158 DBP (mmHg): 82 METS: --- Stage: STAGE 3 Duration (min): 1 min : 0 sec Speed (mph): 3.4 Grade (%): 14 HR (bpm): 127 SBP (mmHg): 118 DBP (mmHg): 72 METS: --- Stage: STAGE 3 Duration (min): 2 min : 0 sec Speed (mph): 3.4 Grade (%): 14 HR (bpm): 134 SBP (mmHg): 118 DBP (mmHg): 72 METS: --- Stage: STAGE 3 Duration (min): 3 min : 0 sec Speed (mph): 3.4 Grade (%): 14 HR (bpm): 136 SBP (mmHg): 118 DBP (mmHg): 72 METS: --- Stage: STAGE 4 Duration (min): 0 min : 38 sec Speed (mph): 4.2 Grade (%): 16 HR (bpm): 141 SBP (mmHg): 118 DBP (mmHg): 72 METS: --- Stage: RECOVERY Duration (min): 0 min : 21 sec Speed (mph): 0.0 Grade (%): 0 HR (bpm): 140 SBP (mmHg): 113 DBP (mmHg): 80 METS: --- Stage: RECOVERY Duration (min): 1 min : 21 sec Speed (mph): 0.0 Grade (%): 0 HR (bpm): 123 SBP (mmHg): 113 DBP (mmHg): 80 METS: --- Stage: RECOVERY Duration (min): 2 min : 21 sec Speed (mph): 0.0 Grade (%): 0 HR (bpm): 104 SBP (mmHg): 126 DBP (mmHg): 86 METS: --- Stage: RECOVERY Duration (min): 3 min : 5 sec Speed (mph): 0.0 Grade (%): 0 HR (bpm): 103 SBP (mmHg): 114 DBP (mmHg): 89 METS: --- Rest HR: 80 bpm Peak HR: 143 bpm Rest Sys BP: 133 mmHg Peak Sys BP: 158 mmHg Max Pred HR: 171 bpm % Max Pred HR: 84 % Target HR: 145 bpm Max RPP: 22,594 bpm*mmHg Rodriguez Score: 7 Termination Reason: Reached target heart rate or workload Cardiac Symptoms: Shortness of breath Max ST Seg Deviation: 0.60 mm Total Time: 9 min : 38 sec Rest Padgett BP: 82 mmHg Peak Padgett BP: 82 mmHg Angina Score: None Total METS: 11.2 Resting ECG Sinus rhythm. Stress ECG No ST changes. Arrhythmias None. Report Signatures
--- OUTSIDE RECORDS SUMMARY | 2024-07-24 08:56 | XMS_ITS | Continuity of Care Document ---
Author Organization [facility] Address [id number] [place] [address] [address] [place] [address] Phone Care Team Providers Care Credit And Collection Manager Name Role Phone Radha Hernandez Unavailable Unavailable Advance Directives Directive Yes / No Effective Date File Name No Information Encounters Encounter Description Practice Location Reason(s) For Visit Diagnoses Date Provider Providers Copied on Encounter [facility], [id number] [place] [address] [address], [place], [place], [id number], [place] tel:[phone] [facility] [place] No Information [address] [facility] , [address], [place], [address], [place]. tel:[phone] Family History Family Member Type Diagnosis Age At Onset No Information Payers Payer name Insurance type Covered democrat ID Authoriza tion(s) No Information Social History Type Description Quantity Date Captured Comments Sex Female Smoking Status No Information Chief Complaint And Reason For Visit No Information Reason For Referral Reason For Referral No Information History Of Present Illness Encounter Date Complaint History Of Prese nt Illness No Information Functional Status Date Functional Assessmen t No Information Instructions Date Instruction Additional Infor mation No Information Assessments Type Assessment Date No Information Patient Care Teams Name Effective Dates (start - stop) Status Members No Information
--- OUTSIDE RECORDS SUMMARY | 2024-07-24 08:56 | XMS_ITS | Patient Health Summary ---
Author Organization [facility] Address [address] [place] [address] Care Team Providers Care Paper Goods Machine Operator Name Role Phone Emily Mei FARZAD-MANAGER OF COMPLIANCE Primary Care Provider + Note from [facility],non-owned Affiliates and Associated Physician Practices is amultiple site organization consisting of ambulatory clinics and hospital sitesin [place], [place], [place] and [place]. This disclosure is being madepursuant to the Care Everywhere program and may not contain all information available regarding this patient. Last updated 18.[facility] Allergies No known active allergies Medications * Be aware that medications may not be up to date on this document. Alwaysverify current medications with the patient. * METOPROLOL & DIET MANAGE PROD PO * HYDROCHLOROTHIAZIDE PO * Levothyroxine Sodium (SYNTHROID PO) * OXYBUTYNIN CHLORIDE PO * CITALOPRAM & DIET MANAGE PROD PO Social History Tobacco Use Types Packs/Day Years Used Date Smoking Tobacco: Never Smokeless Tobacco: Never Sex and Gender Information Value Date Recorded Sex Assigned at Not on file Gender Identity Not on file Sexual Orientation Not on file Last Filed Vital Signs Vital Sign Reading Time Taken Comments Blood Pressure 114/68 07/11/2018 9:41 AM DELINQUENCY COUNSELOR Pulse 78 05/06/2020 2:09 PM DELINQUENCY COUNSELOR Temperature 37.1 ??C (98.8 ??F) 05/06/2020 2:09 PM CS T Respiratory Rate 16 05/06/2020 2:09 PM DELINQUENCY COUNSELOR Oxygen Saturation 98% 05/06/2020 2:09 PM DELINQUENCY COUNSELOR Inhaled Oxygen Concentration - - Weight 95.3 kg (210 lb) 05/06/2020 2:09 PM DELINQUENCY COUNSELOR Height 157.5 cm (5' 2 ) 05/06/2020 2:09 PM DELINQUENCY COUNSELOR Body Mass Index 38.41 05/06/2020 2:09 PM DELINQUENCY COUNSELOR Procedures * INFLUENZA A+B - POINT OF CARE (AMB)(Performed 05/06/2020) Performed for Pharyngitis, unspecified etiology * STREP A SCREEN - POINT OF CARE (AMB) STL(Performed 05/06/2020) Performed for Pharyngitis, unspecified etiology * TSH (EXTERNAL RESULT ENTRY)(Performed 08/13/2018) * T4 FREE (EXTERNAL RESULT ENTRY)(Performed 08/13/2018) * LIPID PROFILE (EXTERAL RESULT ENTRY)(Performed 08/13/2018) * COMP MET PANEL (EXTERNAL RESULT ENTRY)(Performed 08/13/2018) * STREP A SCREEN - POINT OF CARE (AMB) STL(Performed 07/11/2018) Performed for Nasopharyngitis acute * STREP A SCREEN - POINT OF CARE (AMB) STL(Performed 06/13/2017) Performed for Acute pansinusitis, recurrence not specified * COMPREHENSIVE METABOLIC PANEL(Performed 09/12/2016) * CBC W AUTO DIFFERENTIAL(Performed 09/12/2016) * SMOOTH MUSCLE ANTIBODY(Performed 09/12/2016) * MITOCHONDRIAL ANTIBODY SCREEN(Performed 09/12/2016) * EDGAR BLOOD SCREEN(Performed 09/12/2016) * HEPATITIS A ANTIBODY(Performed 09/12/2016) * FERRITIN(Performed 09/12/2016) * HEPATITIS C ANTIBODY(Performed 09/12/2016) * HEPATITIS B SURFACE ANTIBODY(Performed 09/12/2016) * HEPATITIS B SURFACE ANTIGEN W RFLX CONFIRMATION(Performed 09/12/2016) * HEPATITIS B CORE ANTIBODY TOTAL(Performed 09/12/2016) * PT-INR [facility](Performed 09/12/2016) * BRUCE STAINING PATTERNS REFLEXED(Performed 09/12/2016) * EDGAR BLOOD SCREEN W/REFLEX TITER(Performed 09/12/2016) * CBC W AUTO DIFFERENTIAL(Performed 09/12/2016) * STREP A SCREEN - POINT OF CARE (AMB) STL(Performed 08/12/2016) Performed for Acute suppurative otitis media of left ear without spontaneous rupture of tympanic membrane, recurrence not specified * DERMATOPATHOLOGY(Performed 10/26/2011) Results * INFLUENZA A+B - POINT OF CARE (AMB) (05/06/2020 2:40 PM DELINQUENCY COUNSELOR) Influenza A Antigen Rapid Negative Negative Influenza B Antigen Rapid Negative Negative Influenza Internal Control present NEGATIVE - POSITIVE Influenza Lot Number [id number] Influenza Expiration Date 07/04/2021 Other NASOPHARYNGEAL SWAB / Unknown 05/06/2020 2:40 PM DELINQUENCY COUNSELOR Toshia Levin Louis PROJ ENGINEER-MANAGER OF COMPLIANCE LAB - PO INT OF CARE ORDERABLES * STREP A SCREEN - POINT OF CARE (AMB) STL (05/06/2020 2:21 PM DELINQUENCY COUNSELOR) Only the most recent of4 resultswithin the time period is included. Pathologist [facility] Strep A Rapid POCT Negative Negative Strep A Internal Control Present Lot # [id number] Expiration Date 05/25/2021 Throat ENTIRE THROAT (SURFACE REGION OF NECK) / Unknown 05/06/2020 2:21 PM DELINQUENCY COUNSELOR Toshia Levin Louis PROJ ENGINEER-MANAGER OF COMPLIANCE LAB - PO INT OF CARE ORDERABLES * (ABNORMAL) COMP MET PANEL (EXTERNAL RESULT ENTRY) (08/13/2018) Pathologist [facility] Glucose (EXTERNAL) 125(A) 70 - 99 mg/dL Sodium (EXTERNAL RESULT) 139 137 - 145 mmol/L Potassium (EXTERNAL RESULT) 4.1 3.5 - 5.1 mmol/L Chloride (EXTERNAL RESULT) 105 98 - 107 mmol/L CO2 (EXTERNAL) 25 22 - 30 mmol/L Calcium (EXTERNAL RESULT) 9.2 8.4 - 10.2 mg/dL Anion Gap (EXTERNAL RESULT) 13.1(A) 14 - 22 mmol/L BUN (EXTERNAL RESULT) 10 8 - 19 mg/dL Creatinine (EXTERNAL RESULT) 0.62(A) 0.66 - 1.25 mg/dl Alkaline Phosphatase (EXTERNAL RESULT) 78 38 - 126 U/L ALT (EXTERNAL RESULT) 82(A) 0 - 35 U/L AST (EXTERNAL RESULT) 60(A) 15 - 37 U/L Protein Total (EXTERNAL RESULT) 7.5 6.3 - 8.2 gm/dL Albumin (EXTERNAL RESULT) 4.1 3.4 - 5.0 gm/dL Bilirubin Total (EXTERNAL RESULT) 0.50 0.20 - 1.30 mg/dL eGFR MDRD (EXTERNAL RESULT) >60 mL/min/1.7 3m2 eGFR (EXTERNAL) mL/min/1.7 3m2 Blood BLOOD SPECIMEN / Unknown 08/13/2018 Historical Provider LAB - CHEMISTRY O RDERABLES * LIPID PROFILE (EXTERAL RESULT ENTRY) (08/13/2018) Pathologist [facility] Cholesterol (EXTERNAL RESULT) 197 140 - 199 mg/dL Triglycerides (EXTERNAL RESULT) 141 0 - 150 mg/dL HDL (EXTERNAL RESULT) 53 >40 mg/dL LDL (EXTERNAL RESULT) 116 0 - 130 mg/dL VLDL (EXTERNAL RESULT) mg/dL Chol HDL Ratio (External Result) Blood BLOOD SPECIMEN / Unknown 08/13/2018 Historical Provider LAB - CHEMISTRY O RDERABLES * (ABNORMAL) TSH (EXTERNAL RESULT ENTRY) (08/13/2018) Pathologist [facility] TSH (EXTERNAL RESULT) 5.320(A) 0.465 - 4.680 uIU/mL Blood BLOOD SPECIMEN / Unknown 08/13/2018 Historical Provider LAB - CHEMISTRY O RDERABLES * T4 FREE (EXTERNAL RESULT ENTRY) (08/13/2018) Pathologist [facility] T4 Free (EXTERNAL RESULT) 0.96 0.78 - 2.19 ng/dl Blood BLOOD SPECIMEN / Unknown 08/13/2018 Historical Provider LAB - CHEMISTRY O RDERABLES * (ABNORMAL) CBC W AUTO DIFFERENTIAL (09/12/2016 11:39 AM CDT) Only the most recent of2 resultswithin the time period is included. Pathologist [facility] WBC 4.1 3.5 - 10.5 10? 3 /uL [facility] RBC 4.18 3.90 - 5.00 10? 6 /uL [facility] Hemoglobin 13.2 12.0 - 15.5 g/dL [facility] Hematocrit 36.6 35.0 - 45.0 % [facility] MCV 87.6 81.0 - 97.0 fL [facility] MCH 31.6 28.0 - 34.0 pg [facility] MCHC 36.1(H) 32.0 - 36.0 g/dL [facility] Platelet Count 201 150 - 400 10? 3 /uL [facility] RDW-SD 41.0 36.0 - 50.0 fL [facility] RDW-CV 12.7 11.2 - 14.8 % [facility] MPV 11.3 9.3 - 12.8 fL [facility] Neutrophils % 51.1 35.0 - 70.0 % [facility] Lymphocytes % 34.9 19.7 - 55.1 % [facility] Monocytes % 12.3 3.0 - 15.0 % [facility] Eosinophils % 1.5 0.0 - 6.0 % [facility] Basophil % 0.2 0.0 - 1.5 % [facility] Neutrophils Absolute 2.1 1.6 - 7.0 10? 3 /uL [facility] Lymphocyte Absolute 1.4 0.8 - 2.9 10? 3 /uL [facility] Monocytes Absolute 0.50 0.14 - 0.66 10? 3 /uL [facility] Eosinophils Absolute 0.06 0.00 - 0.22 10? 3 /uL [facility] Basophils Absolute 0.01 0.00 - 0.06 10? 3 /uL [facility] Immature Granulocytes % 0.2 0.0 - 1.0 % [facility] Blood specimen (specimen) BLOOD SPECIMEN / Unknown 09/12/2016 11:39 AM CDT 09/12/2016 12:35 PM CDT Gadiel Santiago MD LAB - HEMATOLOGY ORD ERABLES [facility] [address] [phone] * (ABNORMAL) COMPREHENSIVE METABOLIC PANEL (09/12/2016 11:39 AM CDT) BUN 10 7 - 26 mg/dL [facility] Creatinine 0.7 0.6 - 1.2 mg/dL [facility] Sodium 138 136 - 145 mmol/L [facility] Potassium 3.7 3.5 - 4.5 mmol/L [facility] Chloride 106 98 - 107 mmol/L [facility] CO2 25 22 - 29 mmol/L [facility] Glucose 94 70 - 115 mg/dL [facility] Calcium 9.0 8.4 - 10.2 mg/dL [facility] Protein Total 7.6 6.0 - 8.3 g/dL [facility] Albumin 3.5 3.4 - 5.0 g/dL [facility] Bilirubin Total 0.7 0.2 - 1.2 mg/dL [facility] Alkaline Phosphatase 60 40 - 150 Units/L [facility] ALT 202(H) 0 - 55 Units/L [facility] AST 118(H) 5 - 34 Units/L [facility] Anion Gap 11 8 - 18 [facility] BUN/Creatinine Ratio 14 7 - 23 [facility] Osmolality Calculated 285 270 - 300 mOsm/kg [facility] Albumin/Globulin Ratio 0.9(L) 1.1 - 2.3 [facility] eGFR >60 >60 mL/min/1.7 3 m2 [facility] Blood specimen (specimen) BLOOD SPECIMEN / Unknown 09/12/2016 11:39 AM CDT 09/12/2016 12:35 PM CDT Gadiel Santiago MD LAB - CHEMISTRY KIERAN BETANCOURT [facility] Organization Address City/State/ZIP Co de Phone Number [address] [phone] * PT-INR [facility] (09/12/2016 11:39 AM CDT) PT 13.7 12.1 - 14.8 Seconds [facility] INR 1.1 See Comment [facility] Comment: Suggested therapeutic range for low-intensity coumadin therapy for venous thromboembolism prophylaxis is an INR of 2.0-3.0. ??For high risk patients (Mitral Valve Prosthesis, Atrial Fibrillation, history of TIA/stroke), suggested prophylactic therapeutic range is an INR of 2.5-3.5. Blood specimen (specimen) BLOOD SPECIMEN / Unknown 09/12/2016 11:39 AM CDT 09/12/2016 12:35 PM CDT Narrative [facility] - 09/12/2016 12:54 PM CDT Is patient on Heparin, Argatroban or Dabigatran?->N Gadiel Santiago MD LAB - COAGULATION OR DERABLES Performing Organization Address [facility] Co de Phone Number [address] [phone] * (ABNORMAL) EDGAR BLOOD SCREEN (09/12/2016 11:39 AM CDT) EDGAR Positive(A ) None Detected [facility] Venous blood specimen (specimen) 09/12/2016 11:39 AM CDT 09/12/2016 12:35 PM CDT Gadiel Santiago MD LAB - CHEMISTRY KIERAN BETANCOURT Performing Organization Address [facility] de Phone Number [address] [phone] * MITOCHONDRIAL ANTIBODY SCREEN (09/12/2016 11:39 AM CDT) Mitochondrial M2 Antibody 6.1 0.0 - 20.0 Units [facility] Comment: Mitochondrial M2 Antibody Numeric Result Interpretation: ?<20.1 Units: ??Negative ?20.1 - 24.9 Units: ??Equivocal ?>24.9 Units: ??Positive ? Blood specimen (specimen) BLOOD SPECIMEN / Unknown 09/12/2016 11:39 AM CDT 09/12/2016 12:35 PM CDT Gadiel Santiago MD LAB - CHEMISTRY KIERAN BETANCOURT Performing Organization Address [facility] de Phone Number [address] [phone] * (ABNORMAL) SMOOTH MUSCLE ANTIBODY (09/12/2016 11:39 AM CDT) Pathologist [facility] F-Actin Antibody IgG 29.0(H) 0.0 - 19.9 Units [facility] Comment: F-Actin Antibody Numeric Result Interpretation: ?<20.0 Units: ??Negative ?20.0 - 30.0 Units: ??Weak Positive ?>30.0 Units: ??Moderate to Strong Positive ? Blood specimen (specimen) BLOOD SPECIMEN / Unknown 09/12/2016 11:39 AM CDT 09/12/2016 12:35 PM CDT Gadiel Santiago MD LAB - SEROLOGY ORDER SYLVESTER Performing Organization Address [facility] de Phone Number [address] [phone] * HEPATITIS B SURFACE ANTIBODY (09/12/2016 11:39 AM CDT) [facility] Hepatitis B Virus Surface Antibody Non-react palak Non-react palak [facility] Comment: < 8 mIU/mL Hepatitis B surface Antibody (HBsAb). Nonreactive for HBsAb - individual is considered not immune to Hepatitis B Virus infection. Hepatitis B Surface Antibody Quantitative 0.1 <8.0 mIU/mL [facility] Comment: Hepatitis B Surface Antibody Numeric Result Interpretation: ? Nonreactive: ?<8.0 mIU/mL ? Indeterminate: ??8.0 - 12.0 mIU/mL ? Reactive: ?>12.0 mIU/mL ? Blood specimen (specimen) BLOOD SPECIMEN / Unknown 09/12/2016 11:39 AM CDT 09/12/2016 12:35 PM CDT Gadiel Santiago MD LAB - CHEMISTRY KIERAN BETANCOURT Performing Organization Address [facility]/ZIP Co de Phone Number [address] [phone] * HEPATITIS B CORE ANTIBODY (09/12/2016 11:39 AM CDT) HBc Antibody Total Non-reacti ve Non-reacti ve [facility] Blood specimen (specimen) BLOOD SPECIMEN / Unknown 09/12/2016 11:39 AM CDT 09/12/2016 12:35 PM CDT Gadiel Santiago MD LAB - CHEMISTRY KIERAN BETANCOURT Performing Organization Address [facility] Co de Phone Number [address] [phone] * HEPATITIS B SURFACE ANTIGEN W RFLX CONFIRMATION (09/12/2016 11:39 AM CDT) Hepatitis B Virus Surface Antigen Non-reacti ve Non-reacti ve [facility] Blood specimen (specimen) BLOOD SPECIMEN / Unknown 09/12/2016 11:39 AM CDT 09/12/2016 12:35 PM CDT Gadiel Santiago MD LAB - CHEMISTRY KIERAN BETANCOURT Performing Organization Address [facility] Co de Phone Number [address] [phone] * HEPATITIS C ANTIBODY (09/12/2016 11:39 AM CDT) Hepatitis C Antibody Non-react palak Non-reac tive [facility] Comment: Hepatitis C Antibody screen indicates no serologic evidence of past or current infection with Hepatitis C Virus. Patients with unexplained liver disease who are immunocompromised or suspected of having acute Hepatitis C infection may benefit from Nucleic Acid Test (NEIDA) for Hepatitis C Viral RNA to confirm Hepatitis C status. Blood specimen (specimen) BLOOD SPECIMEN / Unknown 09/12/2016 11:39 AM CDT 09/12/2016 12:35 PM CDT Gadiel Santiago MD LAB - CHEMISTRY KIERAN BETANCOURT [address] [phone] * (ABNORMAL) HEPATITIS A ANTIBODY (09/12/2016 11:39 AM CDT) Hepatitis A Virus Antibody Total Positive(A ) Negative [facility] (BEAKER) Blood specimen (specimen) 09/12/2016 11:39 AM CDT 09/12/2016 12:35 PM CDT Narrative [facility] (BEAKER) - 09/13/2016 6:13 AM CDT Performed at: ??[address] - [facility] ??[id number] Iron Worker: Sigifredo Suero PhD, Phone: ??[phone] Gadiel Santiago MD LAB - CHEMISTRY KIERAN BETANCOURT Performing Organization Address City/[facility]/ZIP Co de Phone Number [facility] ([facility]) * (ABNORMAL) FERRITIN (09/12/2016 11:39 AM CDT) Ferritin 529(H) 13 - 204 ng/mL [facility] Blood specimen (specimen) BLOOD SPECIMEN / Unknown 09/12/2016 11:39 AM CDT 09/12/2016 12:35 PM CDT Gadiel Santiago MD LAB - CHEMISTRY KIERAN BETANCOURT Performing Organization Address City/[facility]/ZIP Co de Phone Number [address] [phone] * (ABNORMAL) BRUCE STAINING PATTERNS REFLEXED (09/12/2016 11:39 AM CDT) Speckled Pattern 1:160(H) [facility] (BEAKER) Note Comment [facility] (BEAKER) Venous blood specimen (specimen) BLOOD SPECIMEN / Unknown 09/12/2016 11:39 AM CDT 09/14/2016 9:46 AM CDT Sedrick CASIANO) - 09/15/2016 7:08 PM CDT A positive EDGAR result may occur in healthy individuals (low titer) or be associated with a variety of diseases. ??See interpretation chart which is not all inclusive: Pattern ?Antigen Detected ??Suggested Disease Association ? Homogeneous ??DNA(ds,ss), ? SLE - High titers ? Nucleosomes, ? Histones ?Drug-induced SLE ? Speckled ? Sm, SAMPLE PROCESSOR, SCL-70, ??SLE,MCTD,PSS (diffuse form), ? SS-A/SS-B ? Sjogrens ? Nucleolar ?SCL-70, PM-1/SCL ??High titers Scleroderma, ? PM/DM ? Centromere ?? Centromere ?PSS (limited form) w/Crest ? syndrome variable ? Nuclear Dot ??[id number] ??Primary Biliary Cirrhosis ? Nuclear ?GP210, ?Primary Biliary Cirrhosis Membrane ? kassidy A,B,C ? Gadiel Santiago MD LAB - PATHOLOGY/CYTO LOGY ORDERABLES [facility] (LEXIE) * (ABNORMAL) EDGAR BLOOD SCREEN W/REFLEX TITER (09/12/2016 11:39 AM CDT) EDGAR IFA Positive(A ) [facility] (LEXIE) Comment: ? Negative ?? <1:80 ? Borderline ??1:80 ? Positive ?? >1:80 Venous blood specimen (specimen) BLOOD SPECIMEN / Unknown 09/12/2016 11:39 AM CDT 09/14/2016 9:46 AM CDT Narrative [facility] (LEXIE) - 09/15/2016 7:08 PM CDT Performed at: ??01 - [facility] ??[id number] Iron Worker: Sigifredo Suero PhD, Phone: ??[phone] Gadiel Santiago MD LAB - CHEMISTRY KIERAN BETANCOURT [facility] CORINNA STEPHENIE) * PATHOLOGY TISSUE FOR DERMATOLOGY (10/26/2011 12:00 AM CDT) Result CASE: [id number] PATIENT: DANISH COTTO PATHOLOGIC DIAGNOSIS: A. ??Left upper arm, above elbow: DERMATOFIBROMA APPROXIMATES MARGIN B. ??Left lower lat leg: DERMATOFIBROMA APPROXIMATES MARGIN CLINICAL DATA: A-B: ??R/O DF. Check margins. GROSS DESCRIPTION: A: ??Received is one formalin filled container labeled with the patient's name and designated left upper outer arm above elbow. The specimen consists of a punch biopsy measuring [id number], bisected. Jar 0. B: ??Received is one formalin filled container labeled with the patient's name and designated left lower lateral leg. The specimen consists of a punch biopsy measuring [id number], bisected. Jar 0. MICROSCOPIC DESCRIPTION: SPECIMEN ??A: Within the dermis, there are fibrohistiocytic cells in haphazard array among coarse collagen bundles. There is overlying epidermal hyperplasia. Lesion approximates the margin of the specimen. SPECIMEN ??B: Within the dermis, there are fibrohistiocytic cells in haphazard array among coarse collagen bundles. There is overlying epidermal hyperplasia. Lesion approximates the margin of the specimen. Final Diagnosis performed by Betzaida Palmer M.D. Electronically signed 10/28/2011 2:24:24PM [facility] D[facility] Comment: Performed at: Dermatopathology Laboratory [facility] - Department of Dermatology [address], [address] [place] [address] Phone number: [phone] Toll Free: [phone] FAX: [phone] 10/26/2011 10/27/2011 Nadeem Perez MD LAB - PATHOLOGY/CYTO LOGY ORDERABLES [facility] D[facility] [address] [place] [address]. [address] Floor Lab [address] [phone] Care Teams Paper Goods Machine Operator Relationship Specialty Start Date End Date Emily Mei APRN-JOE [address] [phone] PCP - General Nurse Practitioner 08/12/16
--- OUTSIDE RECORDS SUMMARY | 2024-07-24 08:56 | XMS_ITS | Referral Summary ---
Author Organization [facility] Address [address] [place] [address] Care Team Providers Care Top And Trim Worker Name Role Phone Emily Mei FARZAD-FURNACE COOLER Primary Care Provider + Source Comments [facility],non-owned Affiliates and Associated Physician Practices is amultiple site organization consisting of ambulatory clinics and hospital sitesin [place], [place], [place] and [place]. This disclosure is being madepursuant to the Care Everywhere program and may not contain all information available regarding this patient. Last updated 18.[facility] Allergies No known active allergies Medications * Be aware that medications may not be up to date on this document. Alwaysverify current medications with the patient. Medication Sig Dispensed Refills Start Date End Date Status METOPROLOL & DIET MANAGE PROD PO Active HYDROCHLOROTHIAZIDE PO Ac tive Levothyroxine Sodium (SYNTHROID PO) Active OXYBUTYNIN CHLORIDE PO Ac tive CITALOPRAM & DIET MANAGE PROD PO Active Social History Tobacco Use Types Packs/Day Years Used Date Smoking Tobacco: Never Smokeless Tobacco: Never Sex and Gender Information Value Date Recorded Sex Assigned at Not on file Gender Identity Not on file Sexual Orientation Not on file Last Filed Vital Signs Vital Sign Reading Time Taken Comments Blood Pressure 114/68 07/11/2018 9:41 AM INDUSTRIAL TECHNOLOGY EDUCATION TEACHER Pulse 78 05/06/2020 2:09 PM INDUSTRIAL TECHNOLOGY EDUCATION TEACHER Temperature 37.1 ??C (98.8 ??F) 05/06/2020 2:09 PM CS T Respiratory Rate 16 05/06/2020 2:09 PM INDUSTRIAL TECHNOLOGY EDUCATION TEACHER Oxygen Saturation 98% 05/06/2020 2:09 PM INDUSTRIAL TECHNOLOGY EDUCATION TEACHER Inhaled Oxygen Concentration - - Weight 95.3 kg (210 lb) 05/06/2020 2:09 PM INDUSTRIAL TECHNOLOGY EDUCATION TEACHER Height 157.5 cm (5' 2 ) 05/06/2020 2:09 PM INDUSTRIAL TECHNOLOGY EDUCATION TEACHER Body Mass Index 38.41 05/06/2020 2:09 PM INDUSTRIAL TECHNOLOGY EDUCATION TEACHER Plan of Treatment Not on file Procedures Procedure Name Priority Date/Time Associated Diagnosis Comments LIPID PROFILE (EXTERAL RESULT ENTRY) Routine 08/13/2018 COMPREHENSIVE METABOLIC PANEL Routine 09/12/2016 11:39 AM CDT HEPATITIS C ANTIBODY Routine 09/12/2016 11:39 AM CDT from Last 3 Months or Most Recently Relevant to Health Maintenance Results * LIPID PROFILE (EXTERAL RESULT ENTRY) (08/13/2018) Pathologist [facility] Cholesterol (EXTERNAL RESULT) 197 140 - 199 mg/dL Triglycerides (EXTERNAL RESULT) 141 0 - 150 mg/dL HDL (EXTERNAL RESULT) 53 >40 mg/dL LDL (EXTERNAL RESULT) 116 0 - 130 mg/dL VLDL (EXTERNAL RESULT) mg/dL Chol HDL Ratio (External Result) Blood BLOOD SPECIMEN / Unknown 08/13/2018 Historical Provider LAB - CHEMISTRY O BRISAERAHILLARY * (ABNORMAL) COMPREHENSIVE METABOLIC PANEL (09/12/2016 11:39 AM CDT) Pathologist [facility] BUN 10 7 - 26 mg/dL [facility] Creatinine 0.7 0.6 - 1.2 mg/dL [facility] Sodium 138 136 - 145 mmol/L [facility] Potassium 3.7 3.5 - 4.5 mmol/L [facility] Chloride 106 98 - 107 mmol/L [facility] CO2 25 22 - 29 mmol/L [facility] Glucose 94 70 - 115 mg/dL [facility] Calcium 9.0 8.4 - 10.2 mg/dL [facility] Protein Total 7.6 6.0 - 8.3 g/dL [facility] Albumin 3.5 3.4 - 5.0 g/dL [facility] Bilirubin Total 0.7 0.2 - 1.2 mg/dL [facility] Alkaline Phosphatase 60 40 - 150 Units/L [facility] ALT 202(H) 0 - 55 Units/L [facility] AST 118(H) 5 - 34 Units/L [facility] Anion Gap 11 8 - 18 [facility] BUN/Creatinine Ratio 14 7 - 23 [facility] Osmolality Calculated 285 270 - 300 mOsm/kg [facility] Albumin/Globulin Ratio 0.9(L) 1.1 - 2.3 [facility] eGFR >60 >60 mL/min/1.7 3 m2 [facility] Blood specimen (specimen) BLOOD SPECIMEN / Unknown 09/12/2016 11:39 AM CDT 09/12/2016 12:35 PM CDT Gadiel Santiago MD LAB - CHEMISTRY KIERAN BETANCOURT Performing Organization Address [facility]/State/ZIP Co de Phone Number [address] [phone] * HEPATITIS C ANTIBODY (09/12/2016 11:39 AM CDT) Hepatitis C Antibody Non-react [facility] Comment: Hepatitis C Antibody screen indicates no [...] Santiago MD LAB - CHEMISTRY KIERAN BETANCOURT [address] [phone] from Last 3 Months or Most Recently Relevant to Health Maintenance Care Teams Top And Trim Worker Relationship Specialty Start Date End Date Emily Mei APRN-JOE [address] [phone] PCP - General Nurse Practitioner 08/12/16
--- OUTSIDE RECORDS SUMMARY | 2024-07-24 08:56 | XMS_ITS | Data Portability ---
Author Organization [place] [facility], Main Office Address [address] [place] [address] Care Team Providers Care Chief Fundraising Officer Name Role Phone ANA MARÍA PRIETO Primary Care Provider ANA MARÍA PRIETO Referring Provider Assessment Encounter Date Assessment Date Assessment LastModified by Organization Details LastModified Time 08/30/2022 08/30/2022 The patient has a left 3rd trigger finger we talked about treatment options for this she wanted proceed with cortisone and oral prednisone therefore under sterile conditions I injected the patient's left 3rd finger A1 kael site into the flexor tendon sheath with 2 cc 0.5% ropivacaine and 10 mg of Kenalog. The patient tolerated procedure well. It appears she also has left forearm radial tunnel syndrome we talked about treatment options for this she wanted proceed with cortisone therefore under sterile conditions I injected the patient's left forearm radial tunnel with 2 cc 0.5% ropivacaine and 10 mg of Kenalog. Patient tolerated procedure well. Hopefully the prednisone will help calm both issues down she was going to modify her activity somewhat for now. She will take Aleve 2 pills twice a day after the prednisone is done also if she needs to. I will see her back in 6 weeks we will talk further treatment options at that time she voiced understanding agrees above plan she will call for any further problems difficulties or questions. [email or web address] Not available 08/30/2022 10:20:33 Plan of Treatment Reminders Order Date Submit Date Provider Last Modified By Organization Details Last Modified Time Details Appointments None recorded. Lab None recorded. Referral None recorded. Procedures injection/a spiration joint/bursa (PROC) - in office procedure, administere d by provider 2022 023 [email or web address] Not available 10:14:34 injection/a spiration joint/bursa (PROC) - in office procedure, administere d by provider 2022 023 [email or web address] Not available 10:14:34 Surgeries None recorded. Imaging XR, hand 2022 023 [email or web address] [facility], [place], [address], 11:39:58 Medication Orders Kenalog 10 mg/mL suspension for injection [address]/Pharmacy #[id number], [address] [place], [address], 3 10:21:37 ropivacaine (PF) 5 mg/mL (0.5 %) injection solution [address]/Pharmacy #[id number], [address] [place], [address], 3 10:21:37 Kenalog 10 mg/mL suspension for injection [address]/Pharmacy #[id number], [address] [place], [address], 3 10:21:37 ropivacaine (PF) 5 mg/mL (0.5 %) injection solution [address]/Pharmacy #[id number], [address] [place], [address], 3 10:21:37 prednisone 10 mg tablets in a dose pack 2022 023 [email or web address]/Pharmacy #[id number], [address] [place], [address], 3 10:21:37 Patient TargetsNo targets recorded. Patient InstructionsNo instructions recorded. Reason for Referral None Reported. Results Created Date Observation Date Name Description Value Unit Range Abnormal Flag Note LastModifiedBy Organization Detail LastModifiedTime 12/26/19 US, abdom en, limit ed [facility] [address], [place] [address] [phone] Coleman hercules Name: RADHA COTTO Access ion #: [id number] Sex: F : 1974 6 Locati on: RA2 Attend ing Physic dilcia: VILMA MARIA Orderi ng Physic dilcia: VILMA MARIA Exam Date: 12/26/19 8:50 AM Exam Name: US ABD/LT D/ORG/ UQ/GB Admitt ing Diagno sis(es ): RADIOL OGY REPORT - FINAL EXAM: US ABD/LT D/ORG/ UQ/GB HISTOR Y: ruq pain COMPAR BRIGID: None. TECHNI QUE: Abdomi nal ultras ound imagin g of the right upper quadra nt is perfor med. Dopple r imagin g of the vascul ar struct ures is perfor med. FINDIN GS: Liver: Unrema rkable Biliar y system : The common bile duct measur ement is 0.4 cm, the upper limit of normal is 0.6 cm Page 1 of 2 [facility] Coleman hercuels Name: RADHA COTTO Access ion #: [id number] Sex: F : 1974 6 Exam Date: 12/26/19 8:50 AM Exam Name: US ABD/LT D/ORG/ UQ/GB Admitt ing Diagno sis(es ): Gallbl adder: The gallbl adder wall measur ement is 0.18 cm. The gallbl adder appear s within normal limits . Chowdhury 's sign was absent . Pancre as: Unrema rkable Right kidney : Dimens ions of the right kidney are 11.6 x 5.2 x 7 cm. The right kidney appear s within normal limits . Vascul ature: The aorta and inferi or vena cava are unrema rkable . Portal vein: Hepato petal flow IMPRES KASEY: Unrema rkable abdomi nal ultras ound. Create d and electr onical ly signed by: Rahul floyd MD Signed Date: 12/26/19 11:06 AM (CT) Dictat ed by: Rahul floyd MD (CT) (CT) Page 2 of [id number] [facility] (Imaging) [address] [place], [address], 08/24/2022 07:38:22 12/26/19 21 12/25/2020 US, stewart garner r No observ ation record ed. [id number] [facility] [address] [place], [address], 08/24/2022 07:38:22 03/08/20 21 03/08/2021 NM, hepat obili eben scan No observ ation record ed. [id number] [facility] [address] [place], [address], 08/24/2022 07:38:22 11/26/19 22 11/24/2021 MAMMO , scree hedy, digit al, bilat eral No observ ation record ed. [id number] [facility] [address], [place], [address], 08/24/2022 07:38:22 08/31/19 23 XR, hand No observ ation record ed. [email or web address] [facility] [address], [place], [address], 08/30/2022 10:20:54 Result Notes None recorded. Problems Name Problem SNOMED Code Status Onset Date Resolution Date Notes Provider Name and Address Organization Details Recorded Time Steatosis of liver 848423008 Active Not Available [facility] 3 07:32:07 Dysmenorrh ea 221879060 Active Not Available [facility] 3 07:32:07 Menometror rhagia 167146191 Active Not Available [facility] 3 07:32:07 Vitamin D deficiency 40952053 Active 2017 Not Available [facility] 3 07:32:07 Hypothyroi dism 54226831 Active 2017 Not Available [facility] 3 07:32:07 Obesity 331517282 Active 2021 Not Available [facility] 3 07:32:07 Type 2 diabetes mellitus 38921930 Active 2019 Not Available [facility] 3 07:32:07 Premenstru al dysphoric disorder 891863 Active Not Available [facility] 3 07:32:08 Pain of left hand 0979517185311 03 Active 2022 Bonny Hoffman RMA null, [place] [facility] 3 09:55:48 Acquired trigger finger of left middle finger 6057431515304 02 Active 2022 Bonny Hoffman RMA null, [place] [facility] 3 10:11:05 Radial tunnel syndrome 686582984 Active 2022 Bonny Hoffman RMA null, [place] [facility] 3 10:11:31 Problem Notes None recorded. Procedures Surgical History Date Name Laterality Status Provider Name and Address Organization Details Recorded Time 05/02/20 13 AUTOMOTIVE REFINISHER Surgery completed Not Available [facility] 08/25/19 23 07:27:26 01/04/20 13 Tubal Ligation completed Not Available [facility] 08/24 07:27:26 11/25/19 13 completed Not Available [facility] 3 07:27:26 06/23/20 11 AUTOMOTIVE REFINISHER Surgery completed Not Available [facility] 08/25/19 07:27:26 hysteroscopy completed Not Available [facility] 08/24/2022 07:27:26 Imaging Results Imaging Date Name Status LastModified by Organization Details LastModified Time 12/25/2020 US, abdomen, limited completed [id number] [facility] (Imaging) [address] [place], [address], 08/24/2022 07:38:22 12/25/2020 US, gallbladder completed [id number] [facility] [address] [place], [address], 08/24/2022 07:38:22 03/08/2021 NM, hepatobiliary scan completed [id number] [facility] [address] [place], [address], 08/24/2022 07:38:22 11/24/2021 MAMMO, screening, digital, bilateral completed [id number] [facility] [address], [place], [address], 08/24/2022 07:38:22 08/30/2022 XR, hand completed [email or web address] [facility] [address], [place], [address], 08/30/2022 10:20:54 Procedure Notes None recorded. Medical Equipment None Reported. Allergies No known drug allergies Medications Name Sig Start Date Stop Date Status Note LastModified by Organization Details LastModified Time cyclobenzap rine 10 mg tablet active Not Available Not Available Not Available amoxicillin 500 mg capsule Take 1 capsule twice a day by oral route for 10 days. active Not Available Not Available No t Available metformin 500 mg tablet active Not Available Not Available Not Available prednisone 10 mg tablet TAKE 1 TABLET 3 TIMES A DAY X3 DAYS, 1 TAB TWICE DAILY X2 DAYS, 1 TAB ONCE A DAY X1 DAY active Not Available Not Available No t Available citalopram 40 mg tablet 1 tablet daily 08/16 completed Not Available Not Available Not Available oxybutynin chloride ER 10 mg tablet,exte nded release 24 hr TAKE ONE TABLET BY MOUTH EVERY DAY active Not Available Not Available No t Available azithromyci n 250 mg tablet TAKE 2 TABLETS (500 MG) BY ORAL ROUTE ONCE DAILY FOR 1 DAY THEN 1 TABLET (250 MG) BY ORAL ROUTE ONCE DAILY FOR 4 DAYS 05/04 completed Not Available Not Available Not Available ofloxacin 0.3 % eye drops active Not Available Not Available Not Available Cytotec 200 mcg tablet Take 2 tablets by oral route at bedtime for 1 day. 04/19 completed Not Available Not Available Not Available metoprolol succinate ER 50 mg tablet,exte nded release 24 hr active Not Available Not Available Not Available hydrocodone 5 mg-acetamin ophen 325 mg tablet 06/28 completed Not Available Not Available Not Available metoprolol succinate ER 200 mg tablet,exte nded release 24 hr active Not Available Not Available Not Available Medrol (Robert) 4 mg tablets in a dose pack Use as directed 08/30 completed Not Available Not Available Not Available prednisone 20 mg tablet 08/30 completed Not Available Not Available Not Available metoprolol succinate ER 100 mg tablet,exte nded release 24 hr TAKE ONE TABLET BY MOUTH EVERY DAY active Not Available Not Available No t Available sertraline 100 mg tablet TAKE 1 TABLET BY MOUTH DAILY active Not Available Not Available No t Available permethrin 5 % topical cream active Not Available Not Available Not Available Diflucan 150 mg tablet Take 1 tablet by oral route for 1 day. active Not Available Not Available No t Available phentermine 37.5 mg tablet TAKE 1 TABLET EVERY DAY active Not Available Not Available No t Available Detrol LA 4 mg capsule,ext ended release active Not Available Not Available Not Available omeprazole 40 mg capsule,del ayed release TAKE ONE CAPSULE BY MOUTH DAILY active Not Available Not Available No t Available tramadol 50 mg tablet active Not Available Not Available No t Available triamcinolo ne acetonide 0.1 % topical cream active Not Available Not Available Not Available ondansetron 8 mg disintegrat ing tablet Place 1 tablet every 8 hours by transling ual route as needed. active Not Available Not Available No t Available levothyroxi ne 25 mcg tablet TAKE ONE TABLET BY MOUTH ONCE DAILY 03/15 completed Not Available Not Available Not Available levothyroxi ne 75 mcg tablet Take 1 tablet every day by oral route for 30 days. 02/05 completed Not Available Not Available Not Available prednisone 10 mg tablets in a dose pack Take 1 tab by mouth, 3 times a day for 3 daysTake 1 tab by mouth 2 times a day for 2 daysTake 1 tab by mouth once a day for 1 day 2022 active Not Available Not Available Not Avai lable levothyroxi ne 100 mcg tablet TAKE 1 BY MOUTH IN THE MORNING ON AN EMPTY STOMACH FOR THE THYROID active Not Available Not Available No t Available oxycodone-a cetaminophe n 5 mg-325 mg tablet active Not Available Not Available No t Available amoxicillin 875 mg tablet Take 1 tablet every 12 hours by oral route for 10 days. active Not Available Not Available No t Available alprazolam 0.25 mg tablet TAKE ONE TABLET BY MOUTH DAILY NEEDED active Not Available Not Available No t Available citalopram 20 mg tablet active Not Available Not Available Not Available dicyclomine 20 mg tablet 11/29 completed Not Available Not Available Not Available Kenalog 10 mg/mL suspension for injection in office 2022 active [facility]: [phone]- 20 Not Available Not Available Not Available benzonatate 100 mg capsule Take 1 capsule 3 times a day by oral route as needed for 10 days. 02/14 completed Not Available Not Available Not Available levothyroxi ne 50 mcg tablet TAKE ONE TABLET BY MOUTH ONCE DAILY active Not Available Not Available No t Available oseltamivir 75 mg capsule Take 1 capsule every day by oral route for 10 days. 01/26 completed Not Available Not Available Not Available omeprazole 20 mg capsule,del ayed release TAKE ONE CAPSULE BY MOUTH EVERY DAY active Not Available Not Available No t Available benazepril 20 mg tablet active Not Available Not Available Not Available hydrochloro thiazide 25 mg tablet TAKE ONE TABLET BY MOUTH EVERY DAY active Not Available Not Available No t Available Vitamin D2 1,250 mcg (50,000 unit) capsule TAKE 1 CAPSULE BY MOUTH ONCE PER WEEK active HOLD Not Available Not Available No t Available fluticasone propionate 50 mcg/actuati on nasal spray,suspe nsion 11/29 completed Not Available Not Available Not Available metformin ER 500 mg tablet,exte nded release 24 hr TAKE ONE TABLET BY MOUTH ONCE DAILY 11/29 completed Not Available Not Available Not Available sertraline 50 mg tablet Take 1 tablet(s) every day by oral route at bedtime 08/13 completed Not Available Not Available Not Available amoxicillin 875 mg-potassiu m clavulanate 125 mg tablet Take 1 tablet every 12 hours by oral route for 10 days. active Not Available Not Available No t Available bupropion HCl XL 150 mg 24 hr tablet, extended release Take 1 tablet(s) every day by oral route for 90 days. 11/29 completed Not Available Not Available Not Available metformin ER 500 mg tablet,exte nded release 24hr (osmotic) 1 tab po daily 08/16 completed Not Available Not Available Not Available ropivacaine (PF) 5 mg/mL (0.5 %) injection solution in office 2022 active [facility] 76810 -[phone]- 01 Not Available Not Available Not Available Victoza 2-Robert 0.6 mg/0.1 mL (18 mg/3 mL) subcutaneou s pen injector INJECT 0.6MG UNDER THE SKIN DAILY FOR ONE WEEK, THEN INCREASE TO 1.2MG DAILY 01/26 completed Not Available Not Available Not Available Saxenda 3 mg/0.5 mL (18 mg/3 mL) subcutaneou s pen injector Inject 0.6mg daily x 1 week, then increase to 1.2mg daily for 1 week active Not Available Not Available No t Available TRUEplus Pen Needle 31 gauge x 09/08 active Not Available Not Available Not Available Ozempic 1 mg/dose (2 mg/1.5 mL) subcutaneou s pen injector [id number] 08/17 completed Not Available Not Available Not Available Ozempic 0.25 mg or 0.5 mg (2 mg/1.5 mL) subcutaneou s pen injector INJECT UNDER THE SKIN 0.25MG ONCE A WEEK FOR 4 WEEKS THEN 0.5MG ONCE A WEEK THEREAFTE R active Not Available Not Available No t Available baclofen 5 mg tablet TAKE 1 TABLET BY MOUTH TWICE DAILY active Not Available Not Available No t Available Ozempic 1 mg/dose (4 mg/3 mL) subcutaneou s pen injector Inject 1 mg every week by subcutane ous route. 11/29 completed Not Available Not Available Not Available Ozempic 2 mg/dose (8 mg/3 mL) subcutaneou s pen injector Inject 2 mg every week by subcutane ous route. active Not Available Not Available No t Available Vitals Date Recorded Body mass index (BMI) Body height Oxygen saturation Oxygen saturation in Arterial blood by Pulse oximetry Heart rate Body temperature Body weight Systolic blood pressure Diastolic blood pressure Provider Name and Address Organization Details Last Updated DateTime 06/29/202 1 37.8 kg/m2 158.75 cm 98 % 98 % 78 /min 97.8 [degF] 79303.4 g 149 mm[Hg] 86 mm[Hg] Not Available [facility] 3 07:30:33 Date Recorded Body mass index (BMI) Body height Oxygen saturation Oxygen saturation in Arterial blood by Pulse oximetry Heart rate Body temperature Body weight Systolic blood pressure Diastolic blood pressure Provider Name and Address Organization Details Last Updated DateTime 1 38.2 kg/m2 158.75 cm 98 % 98 % 74 /min 97.4 [degF] 97335.5 8 g 136 mm[Hg] 84 mm[Hg] Not Available [facility] 3 07:30:33 Date Recorded Body mass index (BMI) Body height Oxygen saturation Oxygen saturation in Arterial blood by Pulse oximetry Heart rate Body temperature Body weight Systolic blood pressure Diastolic blood pressure Provider Name and Address Organization Details Last Updated DateTime 2 37.4 kg/m2 158.75 cm 97 % 97 % 84 /min 96.4 [degF] 88094.2 1 g 136 mm[Hg] 84 mm[Hg] Not Available [facility] 3 07:30:33 Date Recorded Body mass index (BMI) Body height Oxygen saturation Oxygen saturation in Arterial blood by Pulse oximetry Heart rate Body temperature Body weight Systolic blood pressure Diastolic blood pressure Provider Name and Address Organization Details Last Updated DateTime 2 37.3 kg/m2 158.75 cm 98 % 98 % 76 /min 96.3 [degF] 94491.6 2 g 132 mm[Hg] 84 mm[Hg] Not Available [facility] 3 07:30:33 Date Recorded Body height Body mass index (BMI) Body weight Provider Name and Address Organization Details Last Updated DateTime 08/30/2022 157.48 cm 39.9 kg/m2 77642.14 g AMIE Rodriguez [place] [facility] 08/30/2022 09:54:37 Social History Question Answer Notes LastModified by Organizat ion Details LastModified Time Tobacco Smoking Status Never Smoker Not Available [facility] 08/24/2022 07:27:19 What Is Your Level Of Caffeine Consumption? Heavy [id number] Information not available 08/24/2022 How Much Tobacco Do You Chew? None [id number] Information not available 08/24/2022 In The 14 Days Before Symptom Onset, Have You Had Close Contact With A Laboratory-confirm ed COVID-19 While That Case Was Ill? No [id number] Information not available 08/24/2022 In The 14 Days Before Symptom Onset, Have You Had Close Contact With A Person Who Is Under Investigation For COVID-19 While That Person Was Ill? No [id number] Information not available 08/24/2022 Which Illicit Or Recreational Drugs Have You Used? None [id number] Information not available 08/24/2022 What Is Your Occupation? [employer] [id number] Information not available 08/24/2022 What Was The Date Of Your Most Recent Tobacco Screening? 12/10/2018 [id number] Information not available 08/24/2022 Sex: Unknown Functional Status Question Answer Note LastModified by Organizat ion Details LastModified Time What is your exercise level? Occasional [id number] Information not available 08/24/2022 Mental Status None recorded. Family History Relationship Description Onset Age of this Age Resolved Age Notes LastModified by Organization Details LastModified Time Father Diabetes mellitus [id number] Not available 08/24/2022 07:27:29 Father Hypertensive disorder [id number] Not available 08/24/2022 07:27:29 Mother Diabetes mellitus [id number] Not available 08/24/2022 07:27:29 Mother Hypertensive disorder [id number] [id number] Not available 08/24/2022 07:27:29 Maternal Grandmother Diabetes mellitus [id number] Not available 08/24/2022 07:27:29 Medical History Condition Response THYROID DISEASE Y DIABETES, TYPE Y ANXIETY DISORDER Y HYPERTENSION Y Gynecological History Statement/Question Response Abnormal Pap N Date of Last Pap 08/24/2017 Date of Last Mammogram 04/22/2020 Current Control Method Tubal Ligat ion Age at Menarche 13 Obstetrics History GPAL:G 1 P 1 0 0 1 Type Value Full Term 1 Living 1 Total 1 Immunizations Vaccine Type Date Status Note Provider Nam e and Address Organization Details Recorded Time COVID-19, mRNA, LNP-S, PF, 100 mcg/0.5mL dose or 50 mcg/0.25mL dose 1 completed Not Available [facility] 08/24/2022 07:38:11 COVID-19, mRNA, LNP-S, PF, 100 mcg/0.5mL dose or 50 mcg/0.25mL dose 1 completed Not Available [facility] 08/24/2022 07:38:11 Influenza, split virus, quadrivalent, preservative 0 completed Not Available [facility] 08/24/2022 07:38:11 Influenza, split virus, quadrivalent, preservative 8 completed Not Available [facility] 08/24/2022 07:38:12 Influenza, split virus, trivalent, preservative 5 completed Not Available [facility] 08/24/2022 07:38:12 Influenza, split virus, quadrivalent, PF 1 completed Not Available [facility] 08/24/2022 07:38:12 Influenza, split virus, quadrivalent, PF 0 completed Not Available [facility] 08/24/2022 07:38:12 Influenza, split virus, quadrivalent, PF 8 completed Not Available [facility] 08/24/2022 07:38:12 Influenza, split virus, quadrivalent, PF 7 completed Not Available [facility] 08/24/2022 07:38:12 Past Encounters Encounter ID Performer Location Encounter Start Date Encounter Closed Date Diagnosis/Indication Diagnosis SNOMED-CT Code Diagnosis ICD10 Code Diagnosis Note [id number] [facility] [place] [address] 12/22/2020 00:00:00 12/22/2020 17:10:40 [id number] [facility] [place] [address] 05/04/2021 00:00:00 05/04/2021 13:07:40 [id number] [facility] [place] [address] 09/08/2021 00:00:00 09/08/2021 15:36:57 [id number] [facility] Alonsana ermelindavanesa [address] [facility] [address] [place] [address] 11/29/2021 00:00:00 11/29/2021 13:17:35 [id number] YUE Li [facility] [address] [address] 08/30/2022 09:39:39 08/30/2022 11:39:58 Pain of left hand 2212717557 63896 M79.642 Acquired t machinery mover finger of left middle finger 4394582719 58052 M65.332 Radial zenia bettye syndrome 910412141 G56.32 Health Concerns Section Related Observation LastModified by Organization Detai ls LastModified Time None Recorded Concern Status LastModified by Organization Details LastModified Time None Recorded Advance Directives Directive None Recorded Payers Encounter Date Sequence Insurance Name Policy Number Policy Bedoya Covered Member ID Bedoya Member ID Guarantor Name 08/30/2022 1 [employer] - [facility] CHOICE PLUS (PPO) [id number] Xiomara Cotto [id number] Xiomara Cotto Notes Date Note Type Note Provider Name and Address Organization Details Recorded Time 08/30/2022 text/html Patient is a 47-year-old female who presents with a 1 year history of aching in the forearm with numbness and tingling over the top of the hand as well as a 1 month history of triggering in the left 3rd finger. She denies any specific trauma or injury. The forearm discomfort is worse with heavy lifting or repetitive motion she states she does lots of typing at work this aggravates her symptoms. She states the forearm over the dorsum into the radial tunnel region is tender at times she saw a different orthopedic surgeon previously who told her that x-rays were unremarkable couple of months ago she was told that she might need radial tunnel release however he does not do this procedure and he did not do any treatment for her by her report. She has been trying to get by with conservative measures including Aleve on her own home and activity modification without significant relief. The tingling or numbness comes and goes but not severe her main issue is aching in the dorsum of the forearm into the hand dorsally. She is also complaining of triggering in the left 3rd finger she wakes up in the morning with her hand clenched when she tries to straighten the middle finger she has a catching sensation when she gets up and gets moving and does better. She is tender at the A1 kael site in the palm denies any trauma or injury here no erythema he had effusion or signs of infection. She comes in today requesting valuation for this as well we will get x-rays of her hand today.Past medical history sheet was reviewed and signed on the intake sheet today's date drug allergies current medications family social history previous surgical history 10 point review of systems was reviewed and discussed in detail today with the patient. YUE Li [address] [facility], [facility] [address], [place], [address], [place] [employer] 08/30/2022 10:21:17 OBGyn Episode No OBEpisode recorded.
--- OUTSIDE RECORDS SUMMARY | 2024-07-24 08:56 | XMS_ITS | Clinical Summary ---
Author Organization [facility] Address [address] [place] [address] Care Team Providers Care Air Crew Member Name Role Phone Emily Mei FARZAD-DURABILITY TECHNICIAN Primary Care Provider + Source Comments [facility],non-owned Affiliates and Associated Physician Practices is amultiple site organization consisting of ambulatory clinics and hospital sitesin [place], [place], [place] and [place]. This disclosure is being madepursuant to the Care Everywhere program and may not contain all information available regarding this patient. Last updated 18.[employer] [facility] Allergies No known active allergies Medications * [...] Comments Blood Pressure 114/68 07/11/2018 9:41 AM ENVIRONMENTAL SERVICES MANAGER Pulse 78 05/06/2020 2:09 PM ENVIRONMENTAL SERVICES MANAGER Temperature 37.1 ??C (98.8 ??F) 05/06/2020 2:09 PM CS T Respiratory Rate 16 05/06/2020 2:09 PM ENVIRONMENTAL SERVICES MANAGER Oxygen Saturation 98% 05/06/2020 2:09 PM ENVIRONMENTAL SERVICES MANAGER Inhaled Oxygen Concentration - - Weight 95.3 kg (210 lb) 05/06/2020 2:09 PM ENVIRONMENTAL SERVICES MANAGER Height 157.5 cm (5' 2 ) 05/06/2020 2:09 PM ENVIRONMENTAL SERVICES MANAGER Body Mass Index 38.41 05/06/2020 2:09 PM ENVIRONMENTAL SERVICES MANAGER Plan of Treatment Health Maintenance Due Date Last Done Comments COLOGUARD (AGES 45-75) - COL ON CA SCREENING 1975 COLON MONITORING 1975 COLONOSCOPY - COLON CA SCREENING 1975 CT COLONOGRAPHY - COLON CA SCREENING 1975 Colorectal Cancer Screening 1975 FIT - COLON CA SCREENING 1975 FLEX SIG - COLON CA SCREENING 1975 MAMMOGRAM 1975 PAP SMEAR 1975 HIV SCREENING 1990 DTAP/TDAP/TD VACCINES (1 - Tdap) 1994 HEPATITIS B VACCINE (1 of 3 - 19+ 3-dose series) 1994 SCREENING FOR DIABETES 05/06/2020 09/12/2016 LIPID TESTING 08/13/2023 08/13/2018 COVID-19 VACCINE (1 - 2023-2 5 season) 2024 INFLUENZA VACCINE (#1) 2024 DEPRESSION SCREENING 06/26/2024 ZOSTER VACCINE (1 of 2) 2025 HEPATITIS C SCREENING Completed 09/12/2016 HIB VACCINE Aged Out No longer eligi ble based on patient's age to complete this topic HPV VACCINE Aged Out No longer eligi ble based on patient's age to complete this topic MENINGOCOCCAL (Group B) VACCINE Aged Out No longer eligible based on patient's age to complete this topic MENINGOCOCCAL VACCINE Aged Out No angelica chantelle eligible based on patient's age to complete this topic PNEUMOCOCCAL VACCINE Aged Out No long er eligible based on patient's age to complete this topic Procedures Procedure Name Priority Date/Time Associated Diagnosis Comments LIPID PROFILE (EXTERAL RESULT ENTRY) Routine 08/13/2018 COMPREHENSIVE METABOLIC PANEL Routine 09/12/2016 11:39 AM CDT HEPATITIS C ANTIBODY Routine 09/12/2016 11:39 AM CDT from Last 3 Months or Most Recently Relevant to Health Maintenance Results * LIPID PROFILE (EXTERAL RESULT ENTRY) (08/13/2018) Cholesterol (EXTERNAL RESULT) 197 140 - 199 mg/dL Triglycerides (EXTERNAL RESULT) 141 0 - 150 mg/dL HDL (EXTERNAL RESULT) 53 >40 mg/dL LDL (EXTERNAL RESULT) 116 0 - 130 mg/dL VLDL (EXTERNAL RESULT) mg/dL Chol HDL Ratio (External Result) Blood BLOOD SPECIMEN / Unknown 08/13/2018 Historical Provider LAB - CHEMISTRY O RDERABLES * (ABNORMAL) COMPREHENSIVE METABOLIC PANEL (09/12/2016 11:39 AM CDT) [facility] BUN 10 7 - 26 mg/dL [facility] Creatinine 0.7 0.6 - 1.2 mg/dL [facility] Sodium 138 136 - 145 mmol/L [facility] Potassium 3.7 3.5 - 4.5 mmol/L [facility] Chloride 106 98 - 107 mmol/L [facility] CO2 25 22 - 29 mmol/L [facility] Glucose 94 70 - 115 mg/dL [facility] Calcium 9.0 8.4 - 10.2 mg/dL [facility] Protein Total 7.6 6.0 - 8.3 g/dL [facility] Albumin 3.5 3.4 - 5.0 g/dL [facility] Bilirubin Total 0.7 0.2 - 1.2 mg/dL [facility] Alkaline Phosphatase 60 40 - 150 Units/L [facility] ALT 202(H) 0 - 55 Units/L [facility] AST 118(H) 5 - 34 Units/L [facility] Anion Gap 11 8 - 18 [facility] BUN/Creatinine Ratio 14 7 - 23 [facility] Osmolality Calculated 285 270 - 300 mOsm/kg [facility] Albumin/Globulin Ratio 0.9(L) 1.1 - 2.3 [facility] eGFR >60 >60 mL/min/1.7 3 m2 [facility] Blood specimen (specimen) BLOOD SPECIMEN / Unknown 09/12/2016 11:39 AM CDT 09/12/2016 12:35 PM CDT Gadiel Santiago MD LAB - CHEMISTRY [facility] [place] [id number] [address] [phone] * HEPATITIS C ANTIBODY (09/12/2016 11:39 AM CDT) Hepatitis C Antibody Non-react palak Non-reac tive [facility] Comment: Hepatitis C Antibody screen indicates no [...] Santiago MD LAB - CHEMISTRY [facility]IER[facility] [address] [phone] from Last 3 Months or Most Recently Relevant to Health Maintenance Care Teams Air Crew Member Relationship Specialty Start Date End Date Emily Mei APRN-JOE [address] [address] PCP - General Nurse Practitioner 08/12/16
== END 2024-07-24 08:36 | disposition home or self-care (01) ==
PROVIDERS: PCP Nurse Practitioner Adult Health; Visit Provider Nurse Practitioner Adult Health
DX: R07.89 Other chest pain (principal); I10 Essential (primary) hypertension; E11.9 Type 2 diabetes mellitus without complications
CPT/HCPCS: 93017

== ENCOUNTER 2024-10-22 08:14 | Outpatient (CLI) | payer BC, SELFPAY ==
--- NOTE | ~2024-10-22 | US_ITS ---
Pelvic ultrasound. Clinical History: Ovarian cyst COMPARISON: 04/26/2024 Technique: Realtime transabdominal and transvaginal scanning of the pelvis was performed. Color flow Doppler and Doppler spectral analysis were performed. Findings: The uterus is absent, compatible prior hysterectomy. Simple right ovarian cyst measures 2.9 x 2.8 x 2.4 cm, with thin rind of ovarian tissue splayed aroun d the cyst.. The left ovary measures 2.1 x 1.7 x 1.7 cm. No significant left ovarian or adnexal mass is seen. There is no evidence of free fluid in the cul de sac. Impression: 2.9 cm right ovarian cyst. Consider follow-up exam as indicated. Reviewed, dictated and finalized at [facility]. Impression: 2.9 cm right ovarian cyst. Consider follow-up exam as indicated.
== END 2024-10-22 08:15 | disposition home or self-care (01) ==
LOC: GOSHIMG 08:15
PROVIDERS: PCP Obstetrics & Gynecology; Visit Provider Nurse Practitioner Adult Health
DX: N83.201 Unspecified ovarian cyst, right side (principal)
CPT/HCPCS: 76830

== ENCOUNTER 2024-11-13 08:19 | Outpatient (CLI) | payer BC, SELFPAY ==
--- NOTE | ~2024-11-13 | US_ITS ---
Pelvic ultrasound. Clinical History: Ovarian cyst Technique: Realtime transabdominal and transvaginal scanning of the pelvis was performed. Color flow Doppler and Doppler spectral analysis were performed. Findings: The uterus is absent, compatible prior hysterectomy. The right ovary measures 1.9 x 1.8 x 1.7 cm. Right ovarian cyst measures 1.3 cm in diameter. The left ovary is not visualized. No significant left ovarian or adnexal mass is seen. There is no evidence of free fluid in the cul de sac. Impression: 1.3 cm right ovarian cyst, of doubtful clinical significance. Status post hysterectomy. Reviewed, dictated and finalized at location . Impression: 1.3 cm right ovarian cyst, of doubtful clinical significance. Status post hysterectomy.
== END 2024-11-13 08:20 | disposition home or self-care (01) ==
LOC: GOSHIMG 08:20
PROVIDERS: PCP Nurse Practitioner Adult Health; Visit Provider Obstetrics & Gynecology
DX: N83.201 Unspecified ovarian cyst, right side (principal); Z90.710 Acquired absence of both cervix and uterus
CPT/HCPCS: 76830; 76856

== ENCOUNTER 2025-01-23 09:06 | Emergency (ER) | payer BC, SELFPAY ==
[2025-01-23 09:28] VITALS: BP 118/82; PULSE 81; RESP 16; TEMP 36.8; O2SAT 100
--- NOTE | 2025-01-23 09:37 | ED_ITS ---
HPI - URI/Sore Throat General Chief Complaint: Ear Stated Complaint: EARACHE/SORE THROAT/HEADACHE Time Seen by Provider: 01/23/25 09:10 Source: patient Mode of arrival: ambulatory Limitations: no limitations History of Present Illness HPI Narrative: Patient is a 49-year-old female who presents with left ear pain sore throat headache that started yesterday. Patient has taken [id number] medication with no relief. Denies any fever, chills, nausea, vomiting, diarrhea. Related Data Home Medications ?Medication ?Instructions ?Recorded ?Confirmed ?Last Taken ?Type ibuprofen 200 mg tablet 400 mg PO Q6H PRN Pain, Moderate 03/18/24 10/15/24 03/25/24 History ujakoiktlxbn-Fq-btty-minerals 27 1 tablet PO DAILY 03/18/24 10/15/24 03/25/24 History mg-0.4 mg tablet Allergies Allergy/AdvReac Type Severity Reaction Status Date / Time No Known Allergies Allergy Verified 01/23/25 09:25 Review of Systems Review of Systems: All systems reviewed & are unremarkable except as noted in HPI and below Constitutional: Constitutional: Denies body ache(s), Denies fever(s), Reports headache(s), Denies malaise and Denies weakness Eyes: Eyes: Denies loss of vision ENT: Reports otalgia, Reports headache(s), Denies nasal congestion, Denies sinus pain and Reports sore throat Cardiovascular: Cardiovascular: Denies chest pain, Denies irregular heart rhythm and Denies dyspnea Respiratory: Respiratory: Denies dyspnea Gastrointestinal: Gastrointestinal: Denies abdominal pain, Denies melena, Denies hematochezia, Denies diarrhea, Denies nausea and Denies vomiting Musculoskeletal: Musculoskeletal: Denies back pain, Denies myalgias and Denies arthralgias Integumentary/Breasts: Skin/Breast: Denies pruritus and Denies rash Neurologic: Reports headache(s), Denies loss of vision and Denies weakness Psychiatric: Psychiatric: Reports no additional psychiatric complaints PMFSH Past Medical History Medical History Ovarian cyst, right GERD (gastroesophageal reflux disease) Type 2 diabetes mellitus without complications Metabolic syndrome Hypothyroidism, unspecified Fatty (change of) liver, not elsewhere classified Essential (primary) hypertension Elevated glucose Screening mammogram, encounter for Thyroid disease Radial tunnel syndrome of left upper extremity Hypertension Surgical History Surgical History History of robot-assisted laparoscopic hysterectomy (03/28/24) Adhesiolysis 2. left ovarian cystectomy x2 3. left ovarian cystotomy 4. Robotic assisted laparoscopic hysterectomy with salpingectomy History of bladder suspension procedure (01/09/23) bladder sling History of dilation and curettage 01/03/13 hscope d&c/tubal ligation History of laparoscopy (06/23/11) Bilateral tubal ligation using Filshie clips, laparoscopic lysis of adhesions, laparoscopic resection of a left adnexal mass History of tubal ligation (06/23/11) 06/23/11 Bilateral tubal ligation using Filshie clips, laparoscopic lysis of adhesions, laparoscopic resection of a left adnexal mass 01/03/13 hscope d&c w/tubal ligation History of endometrial ablation 05/02/13 hscope d&c/endo ablation--secretory endometrium History of (11/24/02) Family History Family History Father Hypertension Diabetes mellitus Mother Hypertension Diabetes mellitus Breast cancer, Onset Age: 64 double mastectomy Grandparent Family history of lung cancer Family history of coronary artery disease Diabetes mellitus maternal grandmother Hypertension Breast cancer, Onset Age: 80 maternal grandmother Sibling Hypertension Other Depression Social History Social History Smoking status: Never smoker Second hand tobacco smoke exposure: No Alcohol intake: current Alcohol use details: very rarely Substance use: never Substance use type: does not use Do You Feel Safe in your Home?: Yes Lack of Transportation: No Lack of Food: Never True Current Housing: Decline to Answer Concerned About Future Housing: Decline to Answer Difficulty Paying Gas/Electric Bills: Decline to Answer Difficulty Paying for Meds: Decline to Answer Currently Unemployed: Decline to Answer Education: Decline to Answer Difficulty w/ Childcare or Family Care: Decline to Answer Living arrangements: other Additional living arrangements comments: Occupation/Education: occupation 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 There is no relevant family history pertinent to the presenting complaint. Exam Const: General: cooperative, healthy appearing, comfortable, no acute distress and well nourished Nutritional Appearance: well nourished Orientation/consciousness: patient oriented x3 Limitations: no limitations HENMT: Head: normal to inspection, normocephalic and atraumatic Ears: hearing grossly normal bilaterally, external ears normal, TM's normal bilaterally and EAC's normal Face/Nose/Sinus: Normal external nose present, Normal nares present, Normal nasal mucous membranes and turbinates present, Normal septum present, normal facial exam, sinuses nontender and face symmetric Face and sinus: normal facial exam, sinuses nontender and face symmetric Mouth: Yes Normal oral and palatal mucosa present, Yes lip normal and Yes moist mucous membranes Teeth and gingiva: dentition normal Throat: tonsils normal, uvula midline and posterior oropharynx abnormal erythema Eyes: General: appearance normal, both eyes and all related structures Alignment and Position: alignment normal and position normal Periorbital: periorbital findings normal Eyelids: eyelids normal Pupils: Equal, round and reactive pupils present Neck: Neck: normal visual inspection, full ROM, no lymphadenopathy and supple Chest: Chest palpation & inspection: normal inspection of the chest and normal palpation of entire chest wall Resp: Effort & Inspection: normal respiratory effort and able to speak in complete sentences Auscultation: clear to auscultation bilaterally, no crackles, no rales, no rhonchi and no wheezes Cardio: Rate: regular rate Rhythm: regular rhythm Heart sounds: S1 normal heart sound present and S2 normal heart sound present GI: Inspection: normal to inspection Skin: General skin exam: normal color and no rashes or lesions noted Neuro: General: patient oriented x3 and moves all extremities Cranial nerves: Yes Equal, round and reactive pupils present Speech: normal speech Gait exam (Neuro): Normal gait present Extrem: General: normal to inspection, full ROM and no edema Psych: Appearance: grossly normal and well kempt Mental Status: mental status grossly normal Speech and movement: Normal speech and movement present Affect: normal affect Attitude: cooperative Thought process: Normal thought process present Course Course Emergency Course: Patient is aware of diagnosis, understands and agrees to treatment plan. Anticipatory guidance given. Patient agrees to follow-up as directed and is aware of reasons to seek care at the emergency department. Portions of this record may have been created with voice recognition software Level of Care: Express Care Visit Vital Signs Vital signs: Vital Signs Temperature 36.8 C 01/23/25 09:28 Pulse Rate 81 01/23/25 09:28 Respiratory Rate 16 01/23/25 09:28 Blood Pressure 118/82 01/23/25 09:28 Pulse Oximetry 100 01/23/25 09:28 Temperature 36.8 C 01/23/25 09:28 Pulse Rate 81 01/23/25 09:28 Respiratory Rate 16 01/23/25 09:28 Blood Pressure 118/82 01/23/25 09:28 Pulse Oximetry 100 01/23/25 09:28 Reviewed MDM - URI/Sore Throat MDM Narrative Medical decision making narrative: Patient positive for strep, will treat with antibiotics. Pt well hydrated appearing, in no respiratory distress, hemodynamically stable. Recommend supportive care. The patient is stable at time of discharge the clinical impression was discussed and the patient was given the opportunity to ask questions, which were addressed as completely as possible given the i nformation available at present. Anticipatory guidance and return to care precautions were discussed and the importance of primary care follow-up was stressed and encouraged. The patient voiced understanding of the plan, indications to return, and the need for follow-up. Patient is appropriate for outpatient treatment and follow-up. Differential diagnosis considered: Mendiola virus, strep pharyngitis, allergic rhinitis, upper respiratory tract infection, sinusitis, rhinosinusitis, nasopharyngitis. viral pharyngitis, otitis media, otitis externa, otitis effusion, foreign body, cerumen impaction, viral syndrome, and influenza.? Medical Records Attestation: I reviewed the patient's medical records. Lab Data Attestation: I reviewed the patient's lab results. Labs: Lab Results 01/23/25 Range/Units 09:59 POC Grp A Strep Screen Positive (Negative) Discharge Plan Discharge Clinical Impression: Strep throat Patient Disposition: Home Condition: Stable Instructions: Strep Throat (ED) Additional Instructions: Your rapid strep swab was positive today at [facility]. After 24 hours on antibiotics throw tooth brush away and start using a new one. Wash your sheets and cup/water bottle that is used daily. Do not share drinks. Take Motrin alternating with Tylenol for pain and fever alternating every 3 h ours. 8 AM: Tylenol 11 AM: Ibuprofen 2 PM: Tylenol 5 PM: Ibuprofen 8 PM: Tylenol 11 PM: Ibuprofen 2 AM: Tylenol 5 AM: Ibuprofen Increase fluids, avoid caffeine. Other symptomatic treatments include: -Antihistamine medication such as Benadryl at night and Zyrtec/Claritin/Teri during the day can help improve symptoms. -Use Flonase twice a day for 5 days then daily to help reduce the inflammation and dry up your sinuses. -You can also use Sudafed or Mucinex. Be sure to drink plenty of water with these medications at least 8 ounces with every dose and it is important to drink 8 to 10 glasses of water per day. Water is a natural decongestant -Eat and drink things that are easy to swallow, like tea or soup, or popsicles. -Oral rinses such as: Salt water gargles and/or may use topical anesthetic (eg. Chloraseptic spray) or lozenges to relieve dryness or throat pain). -Frequent hand washing or hand coat room attendant is one of the best ways to prevent spread of infection. -Using a vaporizer or humidifier at night will also help thin secretions and help with coughing up phlegm. -Follow up with primary care provider in 3-5 days if condition is not improving - For new or worsening symptoms go directly to the nearest ER Patient Language: Irish Prescriptions: New amoxicillin 500 mg capsule 500 mg PO BID 10 Days Qty: 20 0RF No Action baclofen 5 mg tablet 5 mg PO BID Qty: 180 3RF Patient Comments: patient usually only takes in AM (5mg daily) jsesojayrfbh-Lh-cxmf-minerals 27-0.4 mg Tablet 1 tablet PO DAILY ibuprofen 200 mg Tablet 400 mg PO Q6H PRN (Reason: Pain, Moderate) fluoxetine 20 mg capsule See Rx Instructions .ROUTE .COMPLEX Qty: 90 3RF Dose Instruction: TAKE 1 CAPSULE DAILY AT BEDTIME Rx Instructions: TAKE 1 CAPSULE DAILY AT BEDTIME estradiol 0.5 mg tablet 0.5 mg PO DAILY 90 Days Qty: 90 3RF levothyroxine 100 mcg tablet See Rx Instructions .ROUTE .COMPLEX Qty: 90 3RF Dose Instruction: TAKE 1 TABLET DAILY Rx Instructions: TAKE 1 TABLET DAILY metoprolol succinate 100 mg tablet extended release 24 hr See Rx Instructions .ROUTE .COMPLEX Qty: 90 3RF Dose Instruction: TAKE 1 TABLET DAILY Rx Instructions: TAKE 1 TABLET DAILY omeprazole 40 mg capsule,delayed release(DR/EC) See Rx Instructions .ROUTE .COMPLEX Qty: 90 3RF Dose Instruction: TAKE 1 CAPSULE DAILY Rx Instructions: TAKE 1 CAPSULE DAILY hydrochlorothiazide 25 mg tablet See Rx Instructions .ROUTE .COMPLEX Qty: 90 3RF Dose Instruction: TAKE 1 TABLET DAILY Rx Instructions: TAKE 1 TABLET DAILY Mounjaro 15 mg/0.5 mL pen injector See Rx Instructions .ROUTE .COMPLEX Qty: 2 6RF Dose Instruction: ADMINISTER 15 MG UNDER THE SKIN WEEKLY Rx Instructions: ADMINISTER 15 MG UNDER THE SKIN WEEKLY Follow-up/Referrals: Emily Mei APRN [Primary Care Provider] - 3 Days Stand Alone Forms: Work/School Release IP Time of Disposition: 09:57
[2025-01-23 10:00] LABS: EDSTREPNEGPOS1 Positive (Negative)
== END 2025-01-23 10:03 | disposition home or self-care (01) ==
PROVIDERS: Emergency Provider Nurse Practitioner Family; PCP Nurse Practitioner Adult Health
DX: J02.0 Streptococcal pharyngitis (principal); E11.9 Type 2 diabetes mellitus without complications; E03.9 Hypothyroidism, unspecified; I10 Essential (primary) hypertension
CPT/HCPCS: 87880; 99213; G0463

== ENCOUNTER 2025-05-06 15:41 | Outpatient (CLI) | payer BC, SELFPAY ==
--- NOTE | ~2025-05-06 | MM_ITS ---
EXAMINATION: MM screening ju BI w kerri HISTORY: Screening TECHNIQUE: Craniocaudal and mediolateral oblique 3-D tomosynthesis images were obtained and synthetic 2-D images were generated. CAD analysis was submitted and interpreted. COMPARISON: Comparison to multiple prior studies sequentially, with oldest reviewed study dated 10/21/2017. BREAST PARENCHYMAL COMPOSITION: Not dense: There are scattered areas of fibroglandular density. FINDINGS: The there is a mass in the upper outer quadrant of the right breast, middle third containing developing internal calcifications. The left breast is stable without evidence for malignancy. IMPRESSION: 1. Mass upper outer quadrant of the right breast containing developing internal calcifications. 2. Additional mammographic views and possible breast ultrasound are recommended. BI-RADS Category 0: Incomplete: Needs additional imaging evaluation. Reviewed, dictated and finalized at location B. [facility] IMPRESSION: 1. Mass upper outer quadrant of the right breast containing developing internal calcifications. 2. Additional mammographic views and possible breast ultrasound are recommended . BI-RADS Category 0: Incomplete: Needs additional imaging evaluation.
== END 2025-05-06 15:42 | disposition home or self-care (01) ==
LOC: MICIMG 15:41
PROVIDERS: PCP Obstetrics & Gynecology; Visit Provider Nurse Practitioner Adult Health
DX: Z12.31 Encounter for screening mammogram for malignant neoplasm of breast (principal); R92.8 Other abnormal and inconclusive findings on diagnostic imaging of breast
CPT/HCPCS: 77063; 77067